=== PATIENT | male | born 1965 | race Caucasian/White ===

== ENCOUNTER → 2018-09-10 16:19 | Outpatient (CLI) | payer BC, SELFPAY ==
--- NOTE | 2018-09-10 | XR_ITS ---
XR chest 2V HISTORY: Exposure to secondhand smoke, although a pneumonia ITS.REASON: pre op ORDERING PHYSICIAN: Zoraida Murry DPM PATIENT AGE: 53 years COMPARISON: 03/27/2018 FINDINGS: Unremarkable cardiovascular structures. Chronic increased density is present in the right lung base sterilely consistent with an area of chronic infiltrate or atelectasis. Consider chest CT with contrast to exclude a postobstructive process as this did have a similar appearance on the previous exam. The remaining lungs are clear. There is a an old fracture of the distal left clavicle on the left with incomplete bony union and pseudoarthrosis. IMPRESSION: Chronic infiltrate/atelectatic change in the right lower lobe. Consider chest CT with contrast to exclude a postobstructive process
[2018-09-10 16:40] LABS: Basophils # 0.1 K/mm3 (0-0.2); Basophils % 1.4 % (0.1-2.0); Eosinophils # 0.1 K/mm3 (0.0-0.4); Eosinophils % 2.4 % (0.1-12.0); Hematocrit 45.4 % (42.0-52.0); Hemoglobin 15.5 g/dL (14.1-18.0); Lymphocytes % 19.9 % (10-50); Mean Corpuscular HGB Conc 34.1 g/dL (31.8-35.4); Mean Corpuscular Hemoglobin 30.8 pg (27.0-31.2); Mean Corpuscular Volume 90.2 fl (80-94); Mean Platelet Volume 7.6 fl (7.4-10.4); Monocytes # 0.3 K/mm3 (0.1-1.0); Monocytes % 5.8 % (1.7-9.3); Neutrophils # 3.7 K/mm3 (1.8-7.8); Neutrophils % 70.5 % (37.0-80.0); Platelet Count 258 K/mm3 (142-424); Red Blood Count 5.03 M/mm3 (4.60-6.20); Red Cell Distribution Width 12.8 % (11.5-17.5); White Blood Count 5.2 K/mm3 (4.8-10.8)
[2018-09-10 18:12] LABS: Alanine Aminotransferase 83 U/L (12-78); Albumin Level 4.1 gm/dL (3.4-5.0); Albumin/Globulin Ratio 1.2 (1.1-1.8); Alkaline Phosphatase 68 U/L (46-116); Anion Gap 15.6 mEq/L (5-15); Aspartate Amino Transferase 51 U/L (15-37); Bilirubin,Total 0.3 mg/dL (0.2-1.0); Blood Urea Nitrogen 18 mg/dL (7-18); Calcium 9.9 mg/dL (8.5-10.1); Carbon Dioxide 26 mmol/L (21.0-32.0); Chloride 104 mmol/L (98-107); Creatinine,Serum 1.11 mg/dL (0.70-1.30); Estimated Glomerular Filt Rate 69 ml/min (>60); GFR (African American) 84 ML/MIN (>60); Globulin 3.4 gm/dl (1.3-3.2); Glucose 103 mg/dL (74-106); Potassium 4.6 mmoL/L (3.5-5.1); Sodium 141 mmol/L (136-145); Total Protein,Serum 7.5 gm/dL (6.4-8.2)
== END ==
PROVIDERS: Visit Provider Podiatrist
DX: Z01.818 Encounter for other preprocedural examination (principal); M19.171 Post-traumatic osteoarthritis, right ankle and foot; Z96.9 Presence of functional implant, unspecified
CPT/HCPCS: 36415; 71046; 80053; 85025; 93005

== ENCOUNTER → 2018-10-10 16:47 | Outpatient (CLI) | payer BC, SELFPAY ==
--- NOTE | 2018-10-10 16:53 | XR_ITS ---
XR ankle wt bearing RT min 3V HISTORY: ITS.REASON: pain, postop ORDERING PHYSICIAN: Zoraida Murry DPM PATIENT AGE: 53 years Comparison: 09/14/2018 FINDINGS: There are postsurgical changes of the distal fibula with multiple lucencies from prior screw holes. There is good alignment. No acute fracture of the fibula. Posterior bone plate is present in the distal tibia unchanged. There is osteosclerosis of the distal tibia as before. A lucency is noted along the lateral aspect of the talar dome. This area measures approximately 7 mm suspicious for developing osteochondral defect. CT may confirm. There are osteoarthritic changes of the ankle joint as before. IMPRESSION: Postsurgical changes which are stable. Developing lucency of the lateral aspect of the talar dome which may be due to an osteochondral defect and may be confirmed with CT Osteoarthritis of the ankle
== END ==
PROVIDERS: PCP Family Medicine; Visit Provider Podiatrist
DX: G89.29 Other chronic pain (principal); M25.579 Pain in unspecified ankle and joints of unspecified foot
CPT/HCPCS: 73610

== ENCOUNTER → 2018-11-07 14:09 | Outpatient (CLI) | payer BC, SELFPAY ==
--- NOTE | 2018-11-07 14:16 | US_ITS ---
US Arterial Ankle Brachial Ind History: ITS.REASON: skin changes/cold extremities, surgical planning, previous smoker ORDERING PHYSICIAN: Zoraida Murry DPM PATIENT AGE: 53 years TECHNIQUE: Segmental pressures obtained of both right and left leg. These are compared to brachial blood pressure to yield index at each level sampled including summary FORD. The data sheets from the procedure are available in PACS FINDINGS Rest study only performed today No prior studies available for comparison. Blood pressures reported are in millimeters mercury. RIGHT LEG FORD = 1.0. RIGHT LEG TBI=1.0 Brachial BP: 115 Thigh BP: 126 Calf BP: 125 Ankle PT: 131 Ankle DP : 137 Digit =130 LEFT LEG FORD = 1.2 LEFT LEG TBI= 1.1 Brachial BPD: 126 Thigh BP: 112 Calf BP: 141 Ankle PT:148 Ankle DP: 142 Digit = 138 Pulses and waveforms: Normal IMPRESSION: The ABIs as reported above are within normal limits. Waveforms and pulses are also unremarkable.
== END ==
PROVIDERS: PCP Family Medicine; Visit Provider Podiatrist
DX: R68.89 Other general symptoms and signs (principal)
CPT/HCPCS: 93922

== ENCOUNTER → 2018-11-14 14:18 | Outpatient (CLI) | payer BC, SELFPAY ==
--- NOTE | 2018-11-14 14:20 | CT_ITS ---
CT ankle RT wo con INDICATION: Pain, prior ORIF of ITS.REASON: Surgical Planning ORDERING PHYSICIAN: Zoraida Murry DPM PATIENT AGE: 53 years COMPARISON: None TECHNIQUE: Axial images are obtained without contrast. Sagittal and coronal reformatted images are reviewed as well. All CT scans at the facility use one or more dose reduction, viz: automated exposure control, ma/kV adjustment per patient size (including targeted exams where dose is matched to indication, i.e. head), or iterative reconstruction technique. FINDINGS: There are mild osteoarthritic changes of the 3 compartments of the knee. A linear area of sclerosis is present involving the proximal tibia anteriorly and may be due to bone island. There are several lucencies of the tibia consistent with prior external fixator tracks. There is a posterior bone plate at the distal tibia with multiple screws with artifact from the screws. Multiple lucent defects are present in the distal fibula from prior external fixator. There is somewhat irregular subcortical lucency involving the lateral aspect of the talar down at 14 mm with an associated subcortical lucency of the lateral aspect of the distal tibia adjacent to the talar dome abnormality.. Osteoarthritic changes are present at the ankle joint with mild flattening of the talar dome. No bony destructive process evident that would indicate osteomyelitis. There is mild soft tissue swelling at the ankle joint.. No acute fracture. IMPRESSION: 1. Postsurgical changes of the distal tibia and fibula with multiple lucencies from prior external fixator. 2. Irregular subcortical lucency of the distal tibia laterally and the talar dome laterally. These defects are both sides of the joint. The differential diagnosis would include osteochondritis dissecans, infection, or disuse osteoporosis.
== END ==
PROVIDERS: PCP Family Medicine; Visit Provider Podiatrist
DX: M19.171 Post-traumatic osteoarthritis, right ankle and foot (principal); Z87.81 Personal history of (healed) traumatic fracture
CPT/HCPCS: 73700

== ENCOUNTER → 2018-11-30 08:59 | Outpatient (CLI) | payer BC, SELFPAY ==
--- NOTE | 2018-11-30 09:01 | XR_ITS ---
XR DEXA axial skeleton HISTORY: ITS.REASON: Evaluation ORDERING PHYSICIAN: Zoraida Murry DPM PATIENT AGE: 53 years COMPARISON: None FINDINGS: The BMD measured at the AP Spine L1-L4 femoral neck is 0.787 g/cm squared with a T score of -3.6. This is considered Osteoporotic according to the World Health Organization criteria. Fracture risk is High. Treatment is advised. IMPRESSION: Osteoporosis with high fracture risk. Treatment is advised. Suggest follow-up exam November 2019
== END ==
PROVIDERS: PCP Family Medicine; Visit Provider Podiatrist
DX: G89.29 Other chronic pain (principal); M19.171 Post-traumatic osteoarthritis, right ankle and foot; M25.371 Other instability, right ankle; M25.579 Pain in unspecified ankle and joints of unspecified foot; M65.9 Synovitis and tenosynovitis, unspecified; Z87.81 Personal history of (healed) traumatic fracture
CPT/HCPCS: 77080

== ENCOUNTER → 2018-12-10 12:23 | Outpatient (POV) | payer BC, SELFPAY | PROVIDERS: Visit Provider Specialist | DX: M79.604 Pain in right leg (principal); R20.2 Paresthesia of skin; R29.898 Other symptoms and signs involving the musculoskeletal system | CPT/HCPCS: 95886; 95908 ==

== ENCOUNTER → 2019-02-04 09:49 | Outpatient (CLI) | payer BC, SELFPAY ==
--- NOTE | 2019-02-04 10:00 | XR_ITS ---
PROCEDURE: XR CHEST 2V CLINICAL HISTORY: PRIOR TOBACCO USE Prior smoker COMPARISON: CXR CHEST(2 VIEWS-NOT PORTABLE) from 05/11/2016 CXR2V XR chest 2V from 03/27/2018 CXR2V XR chest 2V from 09/10/2018 FINDINGS: The cardiomediastinal silhouette and pulmonary vascularity are within normal limits.There are increased markings in the left lung base which may be due to an area of atelectasis. The remaining lungs are clear.No acute bony abnormalities. IMPRESSION: Left basilar atelectasis Dictated by: Jitendra Lockwood MD 02/04/2019 14:30 Signed by: <Electronically signed by Jitendra Lockwood MD in [place]> 02/04/2019 14:30
== END ==
PROVIDERS: PCP Family Medicine; Visit Provider Podiatrist
DX: Z01.818 Encounter for other preprocedural examination (principal); M19.171 Post-traumatic osteoarthritis, right ankle and foot; M25.871 Other specified joint disorders, right ankle and foot
CPT/HCPCS: 71046

== ENCOUNTER 2019-02-13 06:07 | Observation (INO) ==
--- NOTE | 2019-02-13 06:54 | Progress Note ---
[facility] Anesthesia Checklist - Structural Data Admitted From: Home Planned Operative Procedure/s: r total ankle Consent for Planned Operative Procedure(s) Verified: Yes - Additional verifications Anesthesia Reactions: No Hx Blood Transfusions: No Blood Transfusion Reaction: No - Airway Assessment C-Spine Mobility Assessed: Yes TMJ Mobility Assessed: Yes Dentition: Poor Dentition - Neurological Assessment Level of Consciousness: Awake, Alert, Appropriate - Anesthesia Plan Anesthesia Risk discussed: Yes Anesthesia Plan: Verified ASA Class: II Anesthesia Type: General Acuity:: asa2 [facility] History I have reviewed the patient's past medical history: Yes Medical History: Reports:: Osteoporosis Denies:: Cancer, Diabetes Mellitus Type 1, Diabetes Mellitus Type 2, Internal Pacemaker, MRSA, Seizures *Have you ever received a pneumonia vaccine?: No *Have you received a flu vaccine this season?: No Other Medical History: Reports: Osteoporosis, Other. Denies: Blood Transfusion Reaction Anesthesia experience/problems:: none Laterality Cases: Right: Other Other Surgeries: Yes: No Previous Surgery. No: Pacemaker Amputation: No Fractures: Yes - *Social History Educational Level: Completed High School Smoking Status: Never smoker Alcohol Intake: never Alcohol Intake Frequency:: other Substance Use Type: denies use *Occupational Status:: employed Housing: house Household Members: spouse *Travel in the last 8 weeks: None Family Hx:: Diabetes, Stroke, Heart Attack, Hyperlipidemia, Hypertension
--- NOTE | 2019-02-13 07:18 | Operative Note ---
Date of procedure: 02/13/19 Pre-op Diagnosis:: 1. Post-traumatic osteoarthritis of right ankle 2. Retained orthopedic hardware 3. Synovitis of right ankle 4. Impingement of right ankle joint 5. Ankle pain, chronic 6. Gastrocnemius soleus equinus of right lower extremity 7. Paresthesia and pain of right extremity 8. Edema of right lower extremity 9. History of fracture of right ankle 10. Right ankle instability Status post foot surgery: 09/14/18: s/p right ankle HWR, arthroscopy, synovectomy (peroneal tendon synovectomy), exostectomy, bone biospy, medial arthrotomy, application of amniotic graft Post-op Diagnosis:: Same Procedure performed:: 1. Right total ankle replacement 2. Right ankle hardware removal 3. Right ankle synovectomy 4. Right tendo Achilles lengthening 5. Right application of amniotic graft Surgeon:: Zoraida Murry DPM Photographer Model(s):: Alida Esquivel LIST OF FIRST JOB IDEAS:: Rob Walker Anesthesia: GETA, regional (R popliteal block) Estimated blood loss (mL): 40 Clinical Note:: Right ankle post traumatic osteoarthritis pre-op: Underwent surgery on 09/14/18: s/p right ankle HWR, arthroscopy, synovectomy (peroneal tendon synovectomy), exostectomy, bone biospy, medial arthrotomy, application of amniotic graft. At that time the ankle joint looked poor with cartilage damage and severe erosive changes. X-rays and CT scans were obtained. They were reviewed and discussed with the patient. Concerned over the poor bone quality. DEXA scan done 11/30/2018, Osteoporosis with high fracture risk. Treatment is advised. Suggest follow-up exam November 2019. Patient also had an EMG/nerve conduction study 12/10/2018 which was negative for underlying neuropathy. Vascular studies done 11/07/2018: Pulses and waveforms within normal limits. FORD and TBI on the right 1.0, left FORD 1.2, TBI 1.1. Patient saw Dr. Lucero 01/30/2019 had labs and an EKG. Surgical clearance granted. Conservative treatment discussed but not recommended as he has failed bracing, strapping, immobilization, modification of shoe gear, icing, NSAIDs, home stretching, physical therapy and previous surgery x2. We discussed surgery. All risks and benefits were discussed including but not limited to: damage to blood vessels and nerves, bleeding, infection, wound complications, delayed, mal or non-union of bone, post-traumatic arthritis, need for further surgery, need for removal of implant, subsidence of the implant, implant infection, wearing down of the poly- /implant, prolonged swelling of the extremity, prolonged pain, CRPS/RSD, DVT/PE, below-knee amputation and anesthetic complications. No guarantees were given. All questions fully answered. The patient verbalized understanding and agreed to proceed with surgery. Consent was obtained. Necessary labs and pre-op testing ordered: vit D and CXR. Pt was given a Rx for Zofran, Motrin, Ibuprofen. Patient father has a history of DVT. We discussed DVT prophylaxis with Lovenox x6 weeks until he starts physical therapy. Risks and benefits were reviewed. Patient is agreed with DVT prophylaxis. He has crutches at home. I recommended a rolling knee scooter as well. Operative findings:: Hardware removed without complication. No signs of infection. Synovitis and scar tissue noted to the ankle gutter. There was hypertrophic bone formation within the ankle gutters. Bone was soft consistent with osteoporosis. Operative note:: On this date and time patient was deemed an appropriate surgical candidate. With informed consent signed, the patient was taken to the operating theater after preop regional right popliteal nerve block. The patient was positioned supine. General anesthesia was induced. Tourniquet was applied to the right thigh @250mmHg. Patient was positioned prone and the right lower extremity was prepped and draped in normal sterile fashion. Right Ankle Hardware Removal: The tourniquet was inflated. Attention was directed to the right posterior leg, where a dorsal linear incision was mapped out next to the previous incision site, just lateral to the Achilles tendon. Dissection was carried thru skin and sub q tissue, with care to maintain surgical hemostasis. Scar tissue noted. The hardware was visualized. The screws x 5 and locking plate x 1 were removed. Right Tendo Achilles Lengthening: At this point attention was directed to the Achilles tendon. Utilizing a 15 blade the Achilles was transected in a mayra-fashion with the foot dorsiflexed. Achilles contracture released and range of motion to the ankle was greatly improved. The wound was flushed with bacitracin irrigation. 3-0 Vicryl was used to reapproximate deep tissue in a running fashion. 3-0 Vicryl was used to reapproximate subcutaneous tissue and a running fashion. 3-0 nylon was used to reapproximate the skin in interrupted mattress fashion. Dressing was applied to the area. Tourniquet was deflated and immediate hyperemic response was noted to the digits. The patient was then positioned supine and case proceeded as below. Right Ankle Synovectomy: Attention was directed to the anterior ankle where an incision was mapped out medial to the tibialis anterior tendon. Tourniquet was reinflated. Dissection carried out in a layered fashion with care to maintain hemostasis. Deep fascia and capsule transected, bone visualized. The bone was soft with cystic pockets noted through the tibial plafond and dome of the talus. The soft tissue appeared mostly healthy with no mullen and no necrotic tissue noted. The fibrotic scar and the synovitic tissue was sharply debrided. The ankle joint was visualized and synovitic fluid was removed. The wound was flushed with copious amounts of bacitracin in saline. Right Total Ankle Replacement: In accordance with pricing manager guidelines and standard technique, Prophecy guided technique was utilized. The bone cutting templates were inserted and the tibia and talar cuts were coupled. Bone was removed without complication. There was hypertrophic bone noted to the gutters which was debrided with a rongur and reciprocating rasp. Overall bone quality was noted to be soft but the implant trials and actual implant did fit well with no concern of fracturing of the bone. Intraoperative fluoroscopy was utilized to check position of trials throughout the case including AP MO and lateral. A liter of saline with bacitracin irrigation was used and pulse lavage to flush out the ankle. Size 3 long Inbone tibial implant inserted. At size 3 talus implant was inserted. Intraoperative fluoroscopy utilized to check position of the implant. An 8 mm poly-was then trialed and inserted. Good smooth range of motion was noted. Final gutter debridement performed to remove soft tissue. No impingement was noted. Final radiographic views were obtained and the implant was noted to be seated. Right Application of Amniotic Graft: At this point the wound was re-flushed with bacitracin irrigation. A piece of Actishield tissue graft was transected on the back table. It was then further cut in half and a piece was inserted into the each ankle gutter to prevent gutter impingement. The deep tissue layer was repaired with 2-0 Vicryl. Part of the tibialis anterior tendon was exposed so a piece of the graft was laid over the TA tendon and 2-0 Vicryl was used to reapproximate the sheath. The subcutaneous tissue layer was repair with 3-0 Vicryl in a running fashion. Remaining graft inserted prior to skin closure. The skin was closed in a Donotia Allgower suture fashion with 3-0 nylon. Skin was cleansed. Tourniquet deflated and immediate hyperemic response was noted to the digits. Xeroform and a dry sterile dressing was then applied to the left foot, followed by a posterior splint. The patient was awoken from anesthesia and transferred to recovery with vital signs stable and neurovascular status intact. Materials: Revenew InBone Ankle Implant (3L tibia, 3 talus, 8mm poly) Actishield graft Discharge/Plan: Admit for 23 hour observation for post op pain mgmt and PT evaluation. Patient is to maintain dressing clean dry and intact. Ice to the top of the ankle and elevate on two pillows. Non weight bearing to the right lower extremity with DME assistance. Patient has crutches. Rx for Percocet, Motrin, Zofran, Lovenox, Keflex. Obtain post op films, right ankle, 3 views. Follow up in one week Tourniquet time (min): 175 Condition: stable Disposition: observation Specimens:: None Complications:: During the case, there was a fly noted in the room. The prone procedure was completed. Bacitracin irrigation was added to the irrigation of the wound flush prior to closure. I went to talk to the patient's Chemo as well as his mother. I explained in detail that I could not guarantee that the back table was not contaminated. The entire back table was broken down and instruments completely resterilized. The implants themselves had not been opened yet were still sterile. and mother are aware of the increased risk for infection. They were both adamant the patient would want to proceed. They have both agreed to sign the consent acknowledging that I talked to them and there was increased infection risk. Situation discussed with convention services director Ariane Springer, as well as a nurse dba manager Angelica Nelson and Renetta with infection control. Plan to keep the patient overnight with every 8 antibiotics. We will also plan for oral antibiotics at the time of discharge.
--- NOTE | 2019-02-13 09:43 | History & Physical Report ---
*Admission Date: 02/13/19 *Reason for consult:: Post Op Total Ankle Replacement *History of present illness: Mr. Rinaldi is a 53M who was admitted today for post op pain control and physical therapy evaluation, after right hardware removal, tendo Achilles lengthening and total ankle replacement. Patient has no pertinent medical history and is taking vitamin D for osteoporosis. In the past the patient underwent surgery on 09/14/18: s/p right ankle HWR, arthroscopy, synovectomy (peroneal tendon synovectomy), exostectomy, bone biospy, medial arthrotomy, application of amniotic graft. At that time the ankle joint looked poor with cartilage damage and severe erosive changes. X- rays and CT scans were obtained. They were reviewed and discussed with the patient. Concerned over the poor bone quality. DEXA scan done 11/30/2018, Osteoporosis with high fracture risk. Treatment is advised. Suggest follow-up exam November 2019. Patient also had an EMG/nerve conduction study 12/10/2018 which was negative for underlying neuropathy. Vascular studies done 11/07/2018: Pulses and waveforms within normal limits. FORD and TBI on the right 1.0, left FORD 1.2, TBI 1.1. Patient saw Dr. Lucero 01/30/2019 had labs and an EKG with surgical clearance granted. [facility] History I have reviewed the patient's past medical history: Yes Medical History: Reports:: Osteoporosis Denies:: Cancer, Diabetes Mellitus Type 1, Diabetes Mellitus Type 2, Internal Pacemaker, MRSA, Seizures *Have you ever received a pneumonia vaccine?: No *Have you received a flu vaccine this season?: No Other Medical History: Reports: Osteoporosis, Other. Denies: Blood Transfusion Reaction Anesthesia experience/problems:: none Laterality Cases: Right: Other Other Surgeries: Yes: No Previous Surgery. No: Pacemaker Amputation: No Fractures: Yes - *Social History Educational Level: Completed High School Smoking Status: Never smoker Alcohol Intake: never Alcohol Intake Frequency:: other Substance Use Type: denies use *Occupational Status:: employed Housing: house Household Members: spouse *Travel in the last 8 weeks: None Family Hx:: Diabetes, Stroke, Heart Attack, Hyperlipidemia, Hypertension Review of Systems - Review of Systems Review of systems:: pertinent systems reviewed and negative unless documented below - Constitutional Denies chills, Denies weakness - Eyes Denies blind spots, Denies blurry vision - ENT Denies abnormal hearing - *Cardiovascular Denies chest pain - *Respiratory Denies chest congestion, Denies shortness of breath - *Gastrointestinal Denies abdominal pain, Denies vomiting - *Genitourinary Denies difficulty urinating - *Musculoskeletal Reports joint pain, Reports joint swelling, Denies abnormal walking - Integumentary/Breasts Reports hair loss - *Neurologic Denies abnormal walking, Denies tingling/numbness/burning sensations - Psychiatric Denies abnormal sleep pattern - Endocrine Denies cold intolerance - Hematologic/Lymphatic Reports easy bruising - Allergic/Immunologic Denies itchy eyes, Denies lip swelling Meds Home Medications Medication Instructions Recorded Confirmed Type enoxaparin 40 mg/0.4 mL 40 mg SQ QDAY 42 Days #16.8 ml 02/04/19 02/13/19 Rx subcutaneous syringe ibuprofen 800 mg tablet 800 mg PO BID #60 tab 02/04/19 02/13/19 Rx ondansetron 4 mg disintegrating 4 mg PO Q6H #30 tab 02/04/19 02/13/19 Rx tablet Ergocalciferol (Vitamin D2) 100,000 unit PO WEEKLY 02/12/19 02/13/19 History [Drisdol] Allergies Allergy/AdvReac Type Severity Reaction Status Date / Time No Known Allergies Allergy Verified 02/13/19 06:21 Exam Vital signs and Labs for Last 24 Hours: Temp Pulse Resp BP Pulse Ox 98.6 F 55 L 18 106/78 L 96 02/13/19 06:24 02/13/19 06:24 02/13/19 06:24 02/13/19 06:24 02/13/19 06:24 I & O for Last 24 hours: Intake & Output 02/10/19 02/11/19 02/12/19 02/13/19 11:59 11:59 11:59 11:59 Weight 146 lb - Constitutional no acute distress - *Routine HEENT Exam Head: Present: normocephalic Eye: Present: PERRL ENT: Present: mucous membranes moist - *Routine Neck Exam Present: supple - *Routine Respiratory Exam Present: accessory muscle use, CTA bilaterally - *Routine Cardiovascular Exam Present: RRR - *Routine Abdominal Exam Present: soft. Absent: tenderness - *Routine Rectal Exam Patient deferred: visual exam - *Routine Exam Patient deferred: penile exam - *Routine Extremities Exam Present: pulses intact, normal capillary refill. Absent: calf tenderness - *Routine Skin Exam Present: intact, warm - *Routine Neurological Exam Present: alert, moving all extremities - Routine Psychiatric Exam Present: normal affect - Detailed Lower Extremity Exam Comments: Right posterior splint clean dry and intact. Cap fill time within normal limits. Motor function intact to all extremities. No calf or thigh pain noted bilaterally. Light touch sensation decreased secondary to regional nerve block. Results - Labs Labs: All other labs normal. - Diagnostic results Ankle/Foot x-ray: pending, image reviewed Assessment and Plan (1) Post-traumatic osteoarthritis of right ankle Start date: 02/13/19 Current visit: Yes Status: Acute Category: Medical Code(s): M19.171 - Post-traumatic osteoarthritis, right ankle and foot (2) Synovitis of right ankle Current visit: Yes Status: Acute Category: Medical Code(s): M65.9 - Synovitis and tenosynovitis, unspecified (3) Retained orthopedic hardware Current visit: Yes Status: Acute Category: Medical Code(s): Z96.9 - Presence of functional implant, unspecified (4) Gastrocnemius equinus of right lower extremity Current visit: Yes Status: Acute Category: Medical Code(s): M21.6X1 - Other acquired deformities of right foot (5) Equinus contracture of right ankle Current visit: Yes Status: Acute Category: Medical Code(s): M24.571 - Contracture, right ankle (6) Impingement of right ankle joint Current visit: Yes Status: Acute Category: Medical Code(s): M25.871 - Other specified joint disorders, right ankle and foot (7) Osteoporosis Current visit: Yes Status: Acute Category: Medical Code(s): M81.0 - Age- related osteoporosis without current pathological fracture - Assessment and plan all Dx Assessment and Plan for all problems:: DOS: 02/13/19 S/P: Right total ankle replacement, ankle hardware removal, synovectomy, tendo Achilles lengthening, application of amniotic graft Plan: Admit for 23 hour observation for pain control and PT evaluation Consult PCP-Dr. Lucero as needed PT in am for transitions and gait training, NWB Maintain dressing clean dry and intact to the right lower extremity Nonweightbearing to RLE Cryo/Cuff behind the knee Elevate on 2 pillows or foam ramp SCD and DVT prophylaxis-Lovenox Patient has crutches Patient will need medication: Percocet, Keflex e-Rx Lovenox, Zofran, Motrin Likely discharge home tomorrow
--- NOTE | 2019-02-13 14:11 | Progress Note ---
[facility] Anesthesia Record Part I Intake, IV Amount: 1,900 Estimated blood loss (mL): 50 Urine output (mL): 1,200 Blood Products used (#): none Blood Pressure: 118/77 SaO2: 97 Pulse Rate: 92 Respiratory Rate: 12 Temperature: 97.0 F Patient is:: Drowsy, Stable Stable to PACU at:: 14:05
--- NOTE | 2019-02-13 14:12 | Progress Note ---
[facility] Anesthesia Record Part II Discharge Time: 14:35 Destination: Medical Surgical Department PACU nurse assessment reviewed?: Yes Patient Condition:: Good Anesthesia Complications:: None Swallowing reflex intact?: Yes Cyanosis?: No
--- NOTE | 2019-02-13 14:21 | Pharmacy Consult Notes ---
[facility] Pharmacy VTE Monitoring - Patient Demographics Admission date: 02/13/19 Report Date: 02/13/19 Time: 14:21 Allergies/Adverse Reactions: Patient Allergies No Known Allergies Allergy (Verified 02/13/19 06:21) Height: 1.63 m Weight: 66.224 kg - VTE Risk Clinical Trial Participant: No - Prophylaxis VTE Prophylaxis Ordered?: Yes Types of VTE Prophylaxis: IPCS Knee High (POST OP), Pharmacological Pharmacologic Type: Enoxaparin
--- NOTE | 2019-02-14 07:41 | Progress Note ---
Internal Medicine - PN: Subj *Date: 02/14/19 *Time: 07:40 Interval history: Patient has no complaints this morning. The right leg remains numb from his nerve block. Exam Vital signs and Labs for Last 24 Hours: Temp Pulse Resp BP Pulse Ox 98.4 F 65 18 100/60 L 94 L 02/14/19 04:00 02/14/19 04:00 02/14/19 04:00 02/14/19 04:00 02/14/19 04:00 Laboratory Results - last 24 hr 02/13/19 07:40: Urine Color Yellow, Urine Appearance Clear, Urine pH 6.0, Ur Specific [place] 1.020, Urine Protein Negative, Urine Glucose (UA) Negative, Urine Ketones Negative, Urine Blood Negative, Urine Nitrate Negative, Urine Bilirubin Negative, Urine Urobilinogen 0.2, Ur Leukocyte Esterase Negative, Urine RBC None, Urine WBC Occasional, Ur Squamous Epith Cells None, Urine Bacteria 1+ I & O for Last 24 hours: Intake & Output 02/11/19 02/12/19 02/13/19 02/14/19 11:59 11:59 11:59 11:59 Intake Total 2190 / 2190 Output Total 1750 / 1750 Balance 440 / 440 Weight 146 lb 145 lb Narrative: Patient looks comfortable. Lungs remain clear. Heart has a regular rate and rhythm. Abdomen is soft. Right ankle is bandaged Assessment and Plan (1) Post-traumatic osteoarthritis of right ankle Start date: 02/13/19 Current visit: Yes Status: Acute Category: Medical Code(s): M19.171 - Post-traumatic osteoarthritis, right ankle and foot (2) Synovitis of right ankle Current visit: Yes Status: Acute Category: Medical Code(s): M65.9 - S ynovitis and tenosynovitis, unspecified (3) Retained orthopedic hardware Current visit: Yes Status: Acute Category: Medical Code(s): Z96.9 - Presence of functional implant, unspecified (4) Gastrocnemius equinus of right lower extremity Current visit: Yes Status: Acute Category: Medical Code(s): M21.6X1 - Other acquired deformities of right foot (5) Equinus contracture of right ankle Current visit: Yes Status: Acute Category: Medical Code(s): M24.571 - Contracture, right ankle (6) Impingement of right ankle joint Current visit: Yes Status: Acute Category: Medical Code(s): M25.871 - Other specified joint disorders, right ankle and foot (7) Osteoporosis Current visit: Yes Status: Acute Category: Medical Code(s): M81.0 - Age- related osteoporosis without current pathological fracture - Assessment and plan all Dx Assessment and Plan for all problems:: 1. No active medical issues at this time.
[2019-02-14 08:11] LABS: Basophils % 0.1 % (0.1-2.0); Hematocrit 39.8 % (42.0-52.0); Hemoglobin 13.3 g/dL (14.1-18.0); Lymphocytes # 1.2 K/mm3 (0.7-4.5); Lymphocytes % 9.6 % (10-50); Mean Corpuscular HGB Conc 33.3 g/dL (31.8-35.4); Mean Corpuscular Volume 91.9 fl (80-94); Mean Platelet Volume 7.6 fl (7.4-10.4); Monocytes # 1.2 K/mm3 (0.1-1.0); Neutrophils # 10.5 K/mm3 (1.8-7.8); Neutrophils % 81.4 % (37.0-80.0); Platelet Count 287 K/mm3 (142-424); Red Blood Count 4.34 M/mm3 (4.60-6.20); Red Cell Distribution Width 12.9 % (11.5-17.5); White Blood Count 12.8 K/mm3 (4.8-10.8)
[2019-02-14 08:15] LABS: Albumin Level 3.5 gm/dL (3.4-5.0); Albumin/Globulin Ratio 1.1 (1.1-1.8); Anion Gap 11.9 mEq/L (5-15); Bilirubin,Total 0.5 mg/dL (0.2-1.0); Globulin 3.2 gm/dl (1.3-3.2); Total Protein,Serum 6.7 gm/dL (6.4-8.2)
--- NOTE | 2019-02-14 09:16 | Discharge Summary ---
General - General Admission date:: 02/13/19 Discharge date: 02/14/19 HPI HPI: Mr. Rinaldi was admitted 02/13/2019 following a right total ankle replacement. Relatively uneventful postop course. Patient resting comfortably in bed today with no complaints of pain or medical issues. Hospital Course Hospital Course: Uneventful post op course. 02/13/19 S/P: Right total ankle replacement, ankle hardware removal, synovectomy, tendo Achilles lengthening, application of amniotic graft POD #1: Plan: Admit for 23 hour observation for pain control and PT evaluation Consult PCP-Dr. Lucero/Brennan as needed PT in am for transitions and gait training, NWB Maintain dressing clean dry and intact to the right lower extremity Nonweightbearing to RLE Cryo/Cuff behind the knee Elevate on 2 pillows or foam ramp SCD and DVT prophylaxis-Lovenox Patient has crutches Patient given new Rx Percocet, Keflex e-Rx Lovenox, Zofran, Motrin Discharge home today Objective Vital signs: Temp Pulse Resp BP Pulse Ox 98.4 F 65 18 100/60 L 94 L 02/14/19 04:00 02/14/19 04:00 02/14/19 04:00 02/14/19 04:00 02/14/19 04:00 - *Routine HEENT Exam Head: Present: normocephalic Eye: Present: EOMI - *Routine Neck Exam Present: supple - *Routine Respiratory Exam Present: accessory muscle use, CTA bilaterally - *Routine Cardiovascular Exam Present: RRR - *Routine Abdominal Exam Present: soft. Absent: guarding - *Routine Rectal Exam Patient deferred: visual exam - *Routine Exam Patient deferred: penile exam - *Routine Extremities Exam Present: edema, pulses intact, normal capillary refill - Routine Back/Spine/Pelvis Exam Back/Spine: Present: full ROM - *Routine Skin Exam Present: intact - *Routine Neurological Exam Present: alert - Routine Psychiatric Exam Present: normal affect - Detailed Lower Extremity Exam Comments: The dressing to the right foot had been previously removed secondary to strikethrough. Dressing is now clean dry and intact. Motor function and light touch sensation decreased secondary to nerve block. No calf or thigh pain noted bilaterally. Results Labs on day of discharge: Labs from last 24 hours 02/14/19 02/14/19 02/13/19 07:45 07:45 07:40 WBC 12.8 H RBC 4.34 L Hgb 13.3 L Hct 39.8 L MCV 91.9 MCH 30.6 MCHC 33.3 RDW 12.9 Plt Count 287 MPV 7.6 Neut % (Auto) 81.4 H Lymph % (Auto) 9.6 L [place] % (Auto) 9.0 Eos % (Auto) 0.0 L Baso % (Auto) 0.1 Neut # (Auto) 10.5 H Lymph # (Auto) 1.2 [place] # (Auto) 1.2 H Eos # (Auto) 0.0 Baso # (Auto) 0.0 Sodium 138 Potassium 3.9 Chloride 104 Carbon Dioxide 26 Anion Gap 11.9 BUN 12 Creatinine 1.17 Estimated Creat Clear 68 Estimated GFR 65 Est GFR ( Amer) 79 Glucose 120 H Calcium 9.0 Total Bilirubin 0.5 AST 25 ALT 42 Alkaline Phosphatase 60 Total Protein 6.7 Albumin 3.5 Globulin 3.2 Albumin/Globulin Ratio 1.1 Urine Color Yellow Urine Appearance Clear Urine pH 6.0 Ur Specific [place] 1.020 Urine Protein Negative Urine Glucose (UA) Negative Urine Ketones Negative Urine Blood Negative Urine Nitrate Negative Urine Bilirubin Negative Urine Urobilinogen 0.2 Ur Leukocyte Esterase Negative Urine RBC None Urine WBC Occasional Ur Squamous Epith Cells None Urine Bacteria 1+ DS: Diagnosis - Discharge Diagnosis (1) Post-traumatic osteoarthritis of right ankle Status: Acute (2) Synovitis of right ankle Status: Acute (3) Retained orthopedic hardware Status: Acute (4) Gastrocnemius equinus of right lower extremity Status: Acute (5) Equinus contracture of right ankle Status: Acute (6) Impingement of right ankle joint Status: Acute (7) Osteoporosis Status: Acute Discharge Plan - Patient Discharge Instructions ACTIVITY: Limited activity DIET: continue same diet Additional Instructions: Patient is to maintain dressing clean dry and intact. Ice (polar pack) behind the right knee and elevate on two pillows. Non weight bearing to the right lower extremity with DME assistance (crutches, rolling knee scooter). Continue incentive spirometer q1h. Rx for Percocet 7.5/325 and Keflex given. e-Rx given for Lovenox, Zofran and Motrin 800mg. Follow up in one week as scheduled Patient Instructions: DI for Surgical Site Infection, Surgical Site Infection, DI for Ankle Replacement, Ankle Replacement - Follow up Plan Follow up with: Zoraida Murry DPM [Staff Physician] - Disposition: Home, Self-Residential Medications: Home Medications Medication Instructions Recorded Confirmed Type enoxaparin 40 mg/0.4 mL 40 mg SQ QDAY 42 Days #16.8 ml 02/04/19 02/13/19 Rx subcutaneous syringe ibuprofen 800 mg tablet 800 mg PO BID #60 tab 02/04/19 02/13/19 Rx Ergocalciferol (Vitamin D2) 100,000 unit PO WEEKLY 02/12/19 02/13/19 History [Drisdol] Ondansetron [Zofran 4mg ODT] 4 mg PO Q6H PRN 02/13/19 02/13/19 History Prescriptions/Medication Reconciliation: Continued ibuprofen 800 mg tablet 800 mg PO BID #60 tab enoxaparin 40 mg/0.4 mL subcutaneous syringe 40 mg SQ QDAY 42 Days #16.8 ml Ergocalciferol (Vitamin D2) [Drisdol] 100,000 unit PO WEEKLY Ondansetron [Zofran 4mg ODT] 4 mg PO Q6H PRN PRN Reason: Nausea - Problem Reconciliation Problems Reviewed?: Yes
[2019-02-22 11:40] LABS: 1,25 Dihydroxy Vitamin D 50 pg/mL (.)
== END 2019-02-14 11:55 | disposition home or self-care (01) ==
LOC: 2ND 06:07 → OR 06:07 → OBSVTOIN 06:12 → INTOOBSV 06:12 → 2ND 14:49
PROVIDERS: ADMIT Podiatrist; ATTEND Podiatrist
CPT/HCPCS: 36415; 73600; 73610; 76000; 80053; 81001; 82652; 85025; 96374; 97161; C1776; C9399; G0378; J2405

== ENCOUNTER 2019-02-17 15:27 | Inpatient (IN) ==
[2019-02-17 16:22] LABS: Albumin Level 3.3 gm/dL (3.4-5.0); Albumin/Globulin Ratio 0.8 (1.1-1.8); Anion Gap 15.7 mEq/L (5-15); Bilirubin,Total 1.3 mg/dL (0.2-1.0); Calcium 9.4 mg/dL (8.5-10.1); Globulin 4.3 gm/dl (1.3-3.2); Total Protein,Serum 7.6 gm/dL (6.4-8.2)
[2019-02-17 16:30] LABS: Basophils % 0.2 % (0.1-2.0); Eosinophils % 0.1 % (0.1-12.0); Hemoglobin 13.7 g/dL (14.1-18.0); Lymphocytes # 0.8 K/mm3 (0.7-4.5); Lymphocytes % 5.2 % (10-50); Mean Corpuscular HGB Conc 34.4 g/dL (31.8-35.4); Mean Corpuscular Volume 89.6 fl (80-94); Mean Platelet Volume 8.3 fl (7.4-10.4); Monocytes # 0.9 K/mm3 (0.1-1.0); Neutrophils # 12.9 K/mm3 (1.8-7.8); Neutrophils % 88.5 % (37.0-80.0); Platelet Count 312 K/mm3 (142-424); Red Blood Count 4.46 M/mm3 (4.60-6.20); Red Cell Distribution Width 12.6 % (11.5-17.5); White Blood Count 14.6 K/mm3 (4.8-10.8)
--- NOTE | 2019-02-17 16:36 | Emergency Department Note ---
ED Disposition Clinical Impression: Postoperative fever, Elevated liver enzymes Vomiting Qualifiers: Vomiting type: unspecified Vomiting Intractability: intractable Nausea presence: with nausea Qualified Code(s): R11.2 - Nausea with vomiting, unspecified Disposition: Admitted as Observation Condition on Discharge: Fair - Critical Care Critical Care Time: No Attestation: On 02/17/19, the high probability of a clinically significant, sudden or life threatening deterioration of the following system(s) required my full and direct attention, intervention and personal management. The time I documented below is in addition to time spent performing reported procedures but includes the following listed in this critical care notation. Medical Decision Making - Jose Inquiry Pt receiving controlled substance: Yes Jose was queried for this patient: No Reason not queried -: Emergent pt cond-no time Risks and benefits of using a controlled substance: were not discussed with pt by me Vital Signs: 02/17/19 15:27 02/17/19 16:12 02/17/19 16:56 Temperature 99.1 F 101.3 F H Temperature Source Oral Oral Pulse Rate [Left Radial] 122 H 82 Respiratory Rate 20 Blood Pressure [Right Arm] 110/78 143/86 H Blood Pressure Mean [Right Arm] 88 105 Blood Pressure Source [Right Arm] Automatic Cuff Automatic Cuff Blood Pressure Position [Right Arm] Sitting Sitting 02 Sat by Pulse Oximetry 93 L 99 Oxygen Delivery Method Room Air 02/17/19 17:24 02/17/19 17:35 02/17/19 18:00 Temperature 99 F Temperature Source Oral Pulse Rate [Left Radial] 94 H 81 Respiratory Rate Blood Pressure [Right Arm] 104/68 L 107/75 L Blood Pressure Mean [Right Arm] 80 85 Blood Pressure Source [Right Arm] Automatic Cuff Blood Pressure Position [Right Arm] Sitting 02 Sat by Pulse Oximetry 98 95 Oxygen Delivery Method - Lab Data Lab Results 02/17/19 15:48: Urine Color Dk yellow, Urine Appearance Sl cloudy, Urine pH 6.0, Ur Specific [place] 1.020, Urine Protein Trace, Urine Glucose (UA) Negative, Urine Ketones Trace, Urine Blood Trace-i, Urine Nitrate Negative, Urine Bilirubin Negative, Urine Urobilinogen 1.0, Ur Leukocyte Esterase Negative, Urine RBC Occasional, Urine WBC Occasional, Ur Squamous Epith Cells Occasional, Urine Bacteria Trace, Urine Mucus 3+ 02/17/19 15:52: WBC 14.6 H, RBC 4.46 L, Hgb 13.7 L, Hct 40.0 L, MCV 89.6, MCH 30.8, MCHC 34.4, RDW 12.6, Plt Count 312, MPV 8.3, Neut % (Auto) 88.5 H, Lymph % (Auto) 5.2 L, [place] % (Auto) 6.0, Eos % (Auto) 0.1, Baso % (Auto) 0.2, Neut # (Auto) 12.9 H, Lymph # (Auto) 0.8, [place] # (Auto) 0.9, Eos # (Auto) 0.0, Baso # (Auto) 0.0, Total Counted 100, Neutrophils % (Manual) 90 H, Band Neutrophils % 3.0, Lymphocytes % (Manual) 4 L, Monocytes % (Manual) 3, Platelet Estimate Normal 02/17/19 15:52: Sodium 134 L, Potassium 3.7, Chloride 98, Carbon Dioxide 24, Anion Gap 15.7 H, BUN 14, Creatinine 1.23, Estimated Creat Clear 67, Estimated GFR 62, Est GFR ( Amer) 74, Glucose 121 H, Calcium 9.4, Total Bilirubin 1.3 H, AST 81 H, ALT 170 H, Alkaline Phosphatase 150 H, Total Protein 7.6, Albumin 3.3 L, Globulin 4.3 H, Albumin/Globulin Ratio 0.8 L 02/17/19 15:52: ESR 76 H 02/17/19 15:52: C-Reactive Protein 11.5 H 02/17/19 16:32: Influenza Type A Ag Negative, Influenza Type B Ag Negative 02/17/19 17:13: Lactate 0.8 Result diagrams: 02/17/19 15:52 02/17/19 15:52 Orders (Tests/Meds): ED MEDICATIONS Generic Name Dose Route Start Last Admin Trade Name Freq PRN Reason Stop Dose Admin Acetaminophen 650 mg 02/17/19 18:05 Acetaminophen 325mg Tab PO 03/19/19 18:04 Q4HP PRN As Needed for Fever or Pain Enoxaparin Sodium 40 mg 02/18/19 09:00 Lovenox 40mg/0.4ml Syringe SQ 03/20/19 08:59 DAILY DOMINICK Sodium Chloride 1,000 mls @ 100 mls/hr 02/17/19 18:05 02/17/19 18:33 Sod Chlor 0.9% 1000ml Bag IV 03/19/19 18:04 100 mls/hr .Q10H DOMINICK Administration Piperacillin Sod/Tazobactam 100 mls @ 200 mls/hr 02/17/19 23:30 Sod 4.5 gm/ Sodium Chloride IV 03/03/19 17:29 Q6H DOMINICK Protocol Miscellaneous 1 each 02/17/19 18:05 Vancomycin Consult Request NOTAPPLIC 02/18/19 05:19 CONSULT PHARMACY DOMINICK Morphine Sulfate 4 mg 02/17/19 18:05 Morphine 2mg/Ml Syringe IV 03/19/19 18:04 Q4HP PRN Severe Pain Non-Formulary Medication 800 mg 02/17/19 21:00 Ibuprofen [Ibuprofen 800mg Tablet] PO 03/19/19 20:59 BID DOMINICK Ondansetron HCl 4 mg 02/17/19 18:05 Zofran 4mg/2ml Vial IV 03/19/19 18:04 Q8HP PRN Nausea Sodium Chloride 10 ml 02/17/19 18:05 Saline Flush 10ml Syringe IV 03/19/19 18:04 NEEDED PRN Maintain IV Site Vancomycin HCl 1,250 mg 02/17/19 18:05 Vancomycin 1000mg Vial IV 02/17/19 18:06 ONCE ONE Protocol Discontinued Medications Generic Name Dose Route Start Last Admin Trade Name Freq PRN Reason Stop Dose Admin Acetaminophen 650 mg 02/17/19 16:33 02/17/19 16:38 Acetaminophen 325mg Tab PO 02/17/19 16:34 650 mg ONCE ONE Administration Sodium Chloride 1,000 mls @ 999 mls/hr 02/17/19 15:45 02/17/19 16:38 Sod Chlor 0.9% 1000ml Bag IV 02/17/19 16:45 999 mls/hr .Q1H1M DOMINICK Administration Piperacillin Sod/Tazobactam 100 mls @ 200 mls/hr 02/17/19 17:30 02/17/19 17:49 Sod 4.5 gm/ Sodium Chloride IV 03/03/19 17:29 200 mls/hr Q6H DOMINICK Administration Protocol Miscellaneous 1 each 02/17/19 17:30 02/17/19 17:38 Vancomycin Consult Request NOTAPPLIC 02/18/19 05:19 1 each CONSULT PHARMACY DOMINICK Administration Ondansetron HCl 4 mg 02/17/19 16:33 02/17/19 16:38 Zofran 4mg/2ml Vial IV 02/17/19 16:34 4 mg ONCE ONE Administration Vancomycin HCl 1,250 mg 02/17/19 17:45 Vancomycin 1000mg Vial IV 02/17/19 17:46 ONCE ONE Protocol ORDERS Category Date Time Status XR chest portable Stat Exams 02/17/19 16:30 Taken Blood Culture Stat Micro 02/17/19 17:13 Received - Physician Consults Physician Consulted: Lovely Time: 17:00 Reason -: Podiatry Eval/Care Comment/Response: Discussed case. Sent her photos of the patient's incisions. she feels that these appear as expected. Requests admission to PCP with consult to her. Requests vancomycin. Additional Consult: Brennan Time: 17:15 Reason -: Admission Comment/Response: Agrees to admit the patient to the hospital. We discussed the patient's clinical information, including history, exam, laboratory and radiology results and ED course. Per hospital procedure, I will write temporary bridge inpatient orders on the patient. Specific orders requested by the admitting physician: Discussed elevated liver enzymes. No imaging requested at this time. Repeat labs in the morning. Add Zosyn to vancomycin. IV fluids, pain medication, nausea medication. General Adult HPI - General Chief complaint: Nausea/Vomiting/Diarrhea Stated complaint: had surgery on the on right ankle and is runn Time Seen by Provider: 02/17/19 16:00 Mode of Arrival: Wheelchair Limitations: RECENT SURGERY TO RIGHT ANKLE Description of Symptoms (Recalled from ER Triage Doc. by RN): Had an ankle replacement on 02/[address] Murry. States that yesterday he began running a fever and vomiting, this has continued on all day today as well. Famil y is worried that this is related to his surgery. - History of Present Illness HPI narrative: The patient had right ankle replacement surgery on 02/13/[address] Murry. He had a traumatic injury of his right ankle about 8 or 9 years ago and has had 4 previous surgeries prior to the replacement. Last night he developed subjective fever and chills, vomiting. Has not been able to eat or drink. Has a sore throat, but he says he thinks that is just from all of the retching and vomiting. Has a slight cough. No diarrhea. Constipation due to his pain me dication. He is currently on Keflex, Zofran, Lovenox, ibuprofen, and Percocet. - Related Data Home Medications Medication Instructions Recorded Confirmed Ergocalciferol (Vitamin D2) 100,000 unit PO WEEKLY 02/12/19 02/17/19 [Drisdol] Ondansetron [Zofran 4mg ODT] 4 mg PO Q6H PRN 02/13/19 02/17/19 Previous Rx's Medication Instructions Recorded enoxaparin 40 mg/0.4 mL 40 mg SQ QDAY 42 Days #16.8 ml 02/04/19 subcutaneous syringe ibuprofen 800 mg tablet 800 mg PO BID #60 tab 02/04/19 Allergies Allergy/AdvReac Type Severity Reaction Status Date / Time No Known Allergies Allergy Verified 02/13/19 06:21 [facility] History - Hepatitis A Screen Drug use history?: No High risk sexual behaviors?: No History of sexually transmitted infection?: No Currently employed?: No Childcare worker?: No Do you have indoor plumbing?: Yes Do you have electricity?: Yes Attestation statement:: This patient has been screened for Hepatitis A risk factors. I have reviewed the patient's past medical history: Yes Medical History: Reports:: Osteoporosis Denies:: Cancer, Diabetes Mellitus Type 1, Diabetes Mellitus Type 2, Internal Pacemaker, MRSA, Seizures Other Medical History: Reports: Osteoporosis, Other. Denies: Blood Transfusion Reaction Laterality Cases: Right: Other Other Surgeries: Yes: No Previous Surgery. No: Pacemaker Amputation: No Fractures: Yes Comment: Right Foot surgery 2010 - Social History Educational Level: Completed High School Smoking Status: Never smoker Alcohol Intake: never Alcohol Intake Frequency:: holidays/special occasions only Substance Use Type: denies use Occupational Status: employed Housing: house Household Members: spouse Family Hx:: Diabetes, Stroke, Heart Attack, Hyperlipidemia, Hypertension ROS Obtained: Yes All systems reviewed & no additional complaints - Constitutional Constitutional: Reports chills, Reports fever(s) - ENT Ears, Nose, Mouth, and Throat: Denies nasal discharge, Reports sore throat - Cardiovascular Cardiovascular: Denies chest pain - Respiratory Respiratory: Yes cough, No dyspnea - Gastrointestinal Gastrointestingal: Reports: nausea, vomiting. Denies: abdominal pain, diarrhea - Musculoskeletal Musculoskeletal: Reports as per HPI Physical Exam - General General appearance: alert, in no apparent distress - Head Head exam: atraumatic, normocephalic - Eye Eye exam: Present: normal appearance, EOMI - ENT ENT exam: Present: mucous membranes moist - Neck Neck exam: Present: normal inspection, trachea midline - Chest Chest inspection: Present: normal inspection, symmetric chest wall rise - Respiratory Respiratory exam: Present: normal lung sounds bilaterally. Absent: respiratory distress - Cardiovascular Cardiovascular exam: Present: normal rhythm, tachycardia, normal heart sounds - Abdominal Exam Abdominal exam: Present: soft. Absent: distention, tenderness - Extremities Exam Extremities exam: Present: normal capillary refill - Neurological Exam Neurological exam: Present: alert, oriented X3, CN II-XII intact. Absent: motor sensory deficit - Psychiatric Psychiatric exam: Present: normal affect, normal mood - Skin Skin exam: Present: warm, dry - Other Other exam information: Posterior splint and bandages present on right ankle. These were taken down to expose his surgical wounds. There is some ecchymosis and mild erythema around the anterior ankle wound. No erythema seen over the posterior ankle wound or the wound on the plantar aspect of his heel. No drainage. No ascending lymphangitis. No fluctuance or signs of abscess. Distal neurovascular status intact. Sutures intact, wounds well approximated. Procedures - Miscellaneous Procedure Procedure Performed: Bandage and splint reapplied as per Dr. Murry's request. Splint Application Performed by: NICOLE RANGEL Splinting material: Xeroform, 4 x 4's, Kerlix, Webril, Orthoglass + MALACHI wrap Type of splint: Posterior short leg Location: Right leg Patient tolerance: Patient tolerated the procedure well with no immediate complications Neurovascular status intact with good sensation, capillary refill and movement before and after splint applied.
[2019-02-17 16:51] LABS: Microscopic, Urine URINE MICROSCOPIC (MICROSCOPIC)
[2019-02-17 16:54] LABS: Lymphocytes % 4 % (10-50); Monocytes % 3 % (2-9); Neutrophils % 90 % (42-76); Total Cells Counted 100
[2019-02-17 16:59] LABS: Appearance,Urine SL CLOUDY (Clear); Blood, Urine TRACE-I (Negative); Color,Urine DK YELLOW (Yellow); Glucose,Urine (UA) Negative (Negative); Ketones,Urine TRACE (Negative); Leukocyte Esterase,Urine Negative (Negative); Protein,Urine TRACE (Negative)
[2019-02-17 17:01] LABS: Bilirubin,Urine Negative (Negative)
[2019-02-17 17:08] LABS: Bacteria,Urine Trace /lpf; Mucus,Urine 3+ /lpf; RBC,Urine Occasional #/hpf (0-3); Squamous Epithelial Cell,Urine Occasional #/hpf (0-5); WBC,Urine Occasional #/hpf (0-3)
[2019-02-18 07:31] LABS: Basophils % 0.2 % (0.1-2.0); Eosinophils % 0.3 % (0.1-12.0); Hematocrit 37.3 % (42.0-52.0); Hemoglobin 12.5 g/dL (14.1-18.0); Lymphocytes # 0.5 K/mm3 (0.7-4.5); Lymphocytes % 4.5 % (10-50); Mean Corpuscular HGB Conc 33.5 g/dL (31.8-35.4); Mean Corpuscular Volume 91.5 fl (80-94); Mean Platelet Volume 7.5 fl (7.4-10.4); Monocytes # 0.6 K/mm3 (0.1-1.0); Monocytes % 5.6 % (1.7-9.3); Neutrophils # 9.5 K/mm3 (1.8-7.8); Neutrophils % 89.3 % (37.0-80.0); Platelet Count 245 K/mm3 (142-424); Red Blood Count 4.07 M/mm3 (4.60-6.20); Red Cell Distribution Width 12.7 % (11.5-17.5); White Blood Count 10.6 K/mm3 (4.8-10.8)
[2019-02-18 08:00] LABS: Albumin Level 2.7 gm/dL (3.4-5.0); Albumin/Globulin Ratio 0.8 (1.1-1.8); Anion Gap 14.8 mEq/L (5-15); Bilirubin,Total 1.5 mg/dL (0.2-1.0); Calcium 8.8 mg/dL (8.5-10.1); Globulin 3.6 gm/dl (1.3-3.2); Total Protein,Serum 6.3 gm/dL (6.4-8.2)
--- NOTE | 2019-02-18 08:11 | History & Physical Report ---
*Admission Date: 02/17/19 *Chief complaint: Nausea and fever *History of present illness: 53-year-old male with recent right ankle replacement on February 13 presented to the emergency department with 24 hours of nausea, fevers and vomiting. Patient reports on Monday evening he developed chills that was soon followed by subjective fevers then nausea and vomiting. Patient does not recall how many episodes of vomiting he had and at the time he did not have any diarrhea. Symptoms continued throughout the night on Monday but had improved enough by Monday morning that he was able to tolerate eating some toast for breakfast and chicken broth for lunch. However fevers kept returning and nausea was returning intermittently. Patient sought treatment at the emergency department. In the ER review of systems was positive for a slight cough. Patient denied any significant change in the level of pain coming from his right ankle replacement. He himself did not believe the foot and ankle were showing any signs of infection. The ER physician took pictures of the patient's ankle and sent him to Dr. Murry. Decision was made to admit the patient for IV fluids, IV antibiotics and repeat labs. Patient was noted to have elevated liver function tests on admission. [facility] History I have reviewed the patient's past medical history: Yes Medical History: Reports:: Osteoporosis Denies:: Cancer, Diabetes Mellitus Type 1, Diabetes Mellitus Type 2, Internal Pacemaker, MRSA, Seizures *Have you ever received a pneumonia vaccine?: No *Have you received a flu vaccine this season?: No Other Medical History: Reports: Osteoporosis, Other. Denies: Blood Transfusion Reaction Laterality Cases: Right: Other Other Surgeries: Yes: Other (Right ankle replacement January 2019). No: Pacemaker Amputation: No Fractures: Yes - *Social History Educational Level: Completed High School Smoking Status: Never smoker Alcohol Intake: never Alcohol Intake Frequency:: holidays/special occasions only Substance Use Type: denies use *Occupational Status:: employed Housing: house Household Members: spouse *Travel in the last 8 weeks: None Family Hx:: Diabetes, Stroke, Heart Attack, Hyperlipidemia, Hypertension Review of Systems - Review of Systems Review of systems:: pertinent systems reviewed and negative unless documented below Meds Home Medications Medication Instructions Recorded Confirmed Type enoxaparin 40 mg/0.4 mL 40 mg SQ QDAY 42 Days #16.8 ml 02/04/19 02/17/19 Rx subcutaneous syringe ibuprofen 800 mg tablet 800 mg PO BID #60 tab 02/04/19 02/17/19 Rx Ergocalciferol (Vitamin D2) 100,000 unit PO WEEKLY 02/12/19 02/17/19 History [Drisdol] Ondansetron [Zofran 4mg ODT] 4 mg PO Q6H PRN 02/13/19 02/17/19 History Allergies Allergy/AdvReac Type Severity Reaction Status Date / Time No Known Allergies Allergy Verified 02/13/19 06:21 Exam Vital signs and Labs for Last 24 Hours: Temp Pulse Resp BP Pulse Ox 98.0 F 62 16 115/86 94 L 02/18/19 04:00 02/18/19 04:00 02/18/19 04:00 02/18/19 04:00 02/18/19 04:00 Laboratory Results - last 24 hr 02/17/19 15:48: Urine Color Dk yellow, Urine Appearance Sl cloudy, Urine pH 6.0, Ur Specific [place] 1.020, Urine Protein Trace, Urine Glucose (UA) Negative, Urine Ketones Trace, Urine Blood Trace-i, Urine Nitrate Negative, Urine Bilirubin Negative, Urine Urobilinogen 1.0, Ur Leukocyte Esterase Negative, Urine RBC Occasional, Urine WBC Occasional, Ur Squamous Epith Cells Occasional, Urine Bacteria Trace, Urine Mucus 3+ 02/17/19 15:52: WBC 14.6 H, RBC 4.46 L, Hgb 13.7 L, Hct 40.0 L, MCV 89.6, MCH 30.8, MCHC 34.4, RDW 12.6, Plt Count 312, MPV 8.3, Neut % (Auto) 88.5 H, Lymph % (Auto) 5.2 L, [place] % (Auto) 6.0, Eos % (Auto) 0.1, Baso % (Auto) 0.2, Neut # (Auto) 12.9 H, Lymph # (Auto) 0.8, [place] # (Auto) 0.9, Eos # (Auto) 0.0, Baso # (Auto) 0.0, Total Counted 100, Neutrophils % (Manual) 90 H, Band Neutrophils % 3.0, Lymphocytes % (Manual) 4 L, Monocytes % (Manual) 3, Platelet Estimate Normal 02/17/19 15:52: Sodium 134 L, Potassium 3.7, Chloride 98, Carbon Dioxide 24, Anion Gap 15.7 H, BUN 14, Creatinine 1.23, Estimated Creat Clear 67, Estimated GFR 62, Est GFR ( Amer) 74, Glucose 121 H, Calcium 9.4, Total Bilirubin 1.3 H, AST 81 H, ALT 170 H, Alkaline Phosphatase 150 H, Total Protein 7.6, Albumin 3.3 L, Globulin 4.3 H, Albumin/Globulin Ratio 0.8 L 02/17/19 15:52: ESR 76 H 02/17/19 15:52: C-Reactive Protein 11.5 H 02/17/19 16:32: Influenza Type A Ag Negative, Influenza Type B Ag Negative 02/17/19 17:13: Lactate 0.8 02/18/19 07:08: WBC 10.6 D, RBC 4.07 L, Hgb 12.5 L, Hct 37.3 L, MCV 91.5, MCH 30.7, MCHC 33.5, RDW 12.7, Plt Count 245, MPV 7.5, Neut % (Auto) 89.3 H, Lymph % (Auto) 4.5 L, [place] % (Auto) 5.6, Eos % (Auto) 0.3, Baso % (Auto) 0.2, Neut # (Auto) 9.5 H, Lymph # (Auto) 0.5 L, [place] # (Auto) 0.6, Eos # (Auto) 0.0, Baso # (Auto) 0.0 02/18/19 07:08: Sodium 140, Potassium 3.8, Chloride 105, Carbon Dioxide 24, Anion Gap 14.8, BUN 16, Creatinine 1.15, Estimated Creat Clear 67, Estimated GFR 67, Est GFR ( Amer) 80, Glucose 111 H, Calcium 8.8, Total Bilirubin 1.5 H , AST 139 H D, ALT 189 H, Alkaline Phosphatase 140 H, Total Protein 6.3 L, Albumin 2.7 L D, Globulin 3.6 H, Albumin/Globulin Ratio 0.8 L I & O for Last 24 hours: Intake & Output 02/15/19 02/16/19 02/17/19 02/18/19 11:59 11:59 11:59 11:59 Intake Total 1000 / 1000 Output Total 500 / 500 Balance 500 / 500 Weight 139 lb 8.983 oz Narrative: Patient appears comfortable sitting in bed. Pupils are reactive to light. Oropharynx is moist. Neck is without lymphadenopathy. Lungs are clear to auscultation. Heart has a regular rate and rhythm. Abdomen is soft, nontender with active bowel sounds. Skin is well-hydrated. Right lower leg is bandaged. Assessment and Plan (1) Postoperative fever Current visit: Yes Status: Acute Category: Medical Code(s): R50.82 - Postprocedural fever At this time it would appear that his fever may be due to to a GI illness, possibly even hepatitis. Hepatitis serologies are in process. There are no signs of infection from the surgical site. Continue broad-spectrum antibiotics and IV fluids and await podiatry evaluation (2) Elevated liver enzymes Current visit: Yes Status: Acute Category: Medical Code(s): R74.8 - Abnormal levels of other serum enzymes Await liver serology for hepatitis testing. Repeat liver function test in a.m. (3) Vomiting Current visit: Yes Status: Acute Qualifiers: Vomiting type: unspecified Vomiting Intractability: intractable Nausea presence: with nausea Qualified Code(s): R11.2 - Nausea with vomiting, unspecified Category: Medical Code(s): R11.10 - Vomiting, unspecified Patient will be on a liquid diet
--- NOTE | 2019-02-18 10:05 | Pharmacy Consult Notes ---
[facility] Pharmacy VTE Monitoring - Patient Demographics Admission date: 02/17/19 Report Date: 02/18/19 Time: 10:04 Allergies/Adverse Reactions: Patient Allergies No Known Allergies Allergy (Verified 02/13/19 06:21) Height: 1.65 m Weight: 63.304 kg Patient Problems: Current Active Problems Elevated liver enzymes (Acute) Postoperative fever (Acute) Vomiting (Acute) - VTE Risk Labs: VTE Related Lab Results Hgb 12.5 g/dL (14.1-18.0) L 02/18/19 07:08 Hct 37.3 % (42.0-52.0) L 02/18/19 07:08 Plt Count 245 K/mm3 (142-424) 02/18/19 07:08 BUN 16 mg/dL (7-18) 02/18/19 07:08 Creatinine 1.15 mg/dL (0.70-1.30) 02/18/19 07:08 Estimated Creat Clear 67 mL/min (50-200) 02/18/19 07:08 Was VTE Risk Assessment Performed: Yes VTE Score: 4 VTE Risk Level: Low Risk - Prophylaxis VTE Prophylaxis Ordered?: Yes Types of VTE Prophylaxis: Pharmacological Pharmacologic Type: Enoxaparin
[2019-02-18 10:51] LABS: Lymphocytes % 5 % (10-50); Monocytes % 4 % (2-9); Neutrophils % 87 % (42-76); RBC Morphology Normal; Total Cells Counted 100
--- NOTE | 2019-02-18 10:54 | Pharmacy Consult Notes ---
- Pharmacy Consult Date: 02/18/19 Time: 10:54 Referring provider: DR. FATIMA Reason for Consult:: VANCOMYCIN DOSING Allergies and ADEs:: Allergies Allergy/AdvReac Type Severity Reaction Status Date / Time No Known Allergies Allergy Verified 02/13/19 06:21 Home Medications:: Home Medications Medication Instructions Recorded Confirmed Type ibuprofen 800 mg tablet 800 mg PO BID #60 tab 02/04/19 02/17/19 Rx Ergocalciferol (Vitamin D2) 100,000 unit PO WEEKLY 02/12/19 02/17/19 History [Drisdol] Ondansetron [Zofran 4mg ODT] 4 mg PO Q6H PRN 02/13/19 02/17/19 History Enoxaparin Sodium [Lovenox 40 mg SQ DAILY 02/18/19 02/18/19 History 40mg/0.4mL syringe] Oxycodone HCl/Acetaminophen 1 tab PO Q6HP PRN 02/18/19 02/18/19 History [Percocet 7.5/325mg tablet] cephALEXin [cephALEXin 500mg 500 mg PO BID 02/18/19 02/18/19 History capsule*] Height: 1.65 m Weight: 63.304 kg Laboratory Results:: Laboratory Results - last 24 hr 02/17/19 15:48: Urine Color Dk yellow, Urine Appearance Sl cloudy, Urine pH 6.0, Ur Specific [place] 1.020, Urine Protein Trace, Urine Glucose (UA) Negative, U rine Ketones Trace, Urine Blood Trace-i, Urine Nitrate Negative, Urine Bilirubin Negative, Urine Urobilinogen 1.0, Ur Leukocyte Esterase Negative, Urine RBC Occasional, Urine WBC Occasional, Ur Squamous Epith Cells Occasional, Urine Bacteria Trace, Urine Mucus 3+ 02/17/19 15:52: WBC 14.6 H, RBC 4.46 L, Hgb 13.7 L, Hct 40.0 L, MCV 89.6, MCH 30.8, MCHC 34.4, RDW 12.6, Plt Count 312, MPV 8.3, Neut % (Auto) 88.5 H, Lymph % (Auto) 5.2 L, [place] % (Auto) 6.0, Eos % (Auto) 0.1, Baso % (Auto) 0.2, Neut # (Auto) 12.9 H, Lymph # (Auto) 0.8, [place] # (Auto) 0.9, Eos # (Auto) 0.0, Baso # (Auto) 0.0, Total Counted 100, Neutrophils % (Manual) 90 H, Band Neutrophils % 3.0, Lymphocytes % (Manual) 4 L, Monocytes % (Manual) 3, Platelet Estimate Normal 02/17/19 15:52: Sodium 134 L, Potassium 3.7, Chloride 98, Carbon Dioxide 24, Anion Gap 15.7 H, BUN 14, Creatinine 1.23, Estimated Creat Clear 67, Estimated GFR 62, Est GFR ( Amer) 74, Glucose 121 H, Calcium 9.4, Total Bilirubin 1.3 H, AST 81 H, ALT 170 H, Alkaline Phosphatase 150 H, Total Protein 7.6, Albumin 3.3 L, Globulin 4.3 H, Albumin/Globulin Ratio 0.8 L 02/17/19 15:52: ESR 76 H 02/17/19 15:52: C-Reactive Protein 11.5 H 02/17/19 16:32: Influenza Type A Ag Negative, Influenza Type B Ag Negative 02/17/19 17:13: Lactate 0.8 02/18/19 07:08: WBC 10.6 D, RBC 4.07 L, Hgb 12.5 L, Hct 37.3 L, MCV 91.5, MCH 30.7, MCHC 33.5, RDW 12.7, Plt Count 245, MPV 7.5, Neut % (Auto) 89.3 H, Lymph % (Auto) 4.5 L, [place] % (Auto) 5.6, Eos % (Auto) 0.3, Baso % (Auto) 0.2, Neut # (Auto) 9.5 H, Lymph # (Auto) 0.5 L, [place] # (Auto) 0.6, Eos # (Auto) 0.0, Baso # (Auto) 0.0, Total Counted 100, Neutrophils % (Manual) 87 H, Band Neutrophils % 2.0, Lymphocytes % (Manual) 5 L, Monocytes % (Manual) 4, Metamyelocytes % 2.0 H, Platelet Estimate Normal, RBC Morphology Normal 02/18/19 07:08: Sodium 140, Potassium 3.8, Chloride 105, Carbon Dioxide 24, Anion Gap 14.8, BUN 16, Creatinine 1.15, Estimated Creat Clear 67, Estimated GFR 67, Est GFR ( Amer) 80, Glucose 111 H, Calcium 8.8, Total Bilirubin 1.5 H , AST 139 H D, ALT 189 H, Alkaline Phosphatase 140 H, Total Protein 6.3 L, Albumin 2.7 L D, Globulin 3.6 H, Albumin/Globulin Ratio 0.8 L Medical History: Reports:: Osteoporosis Denies:: Cancer, Diabetes Mellitus Type 1, Diabetes Mellitus Type 2, Internal Pacemaker, MRSA, Seizures Assessment and Plan (1) Postoperative fever Current visit: Yes Status: Acute Category: Medical Code(s): R50.82 - Postprocedural fever (2) Elevated liver enzymes Current visit: Yes Status: Acute Category: Medical Code(s): R74.8 - Abnormal levels of other serum enzymes (3) Vomiting Current visit: Yes Status: Acute Qualifiers: Vomiting type: unspecified Vomiting Intractability: intractable Nausea presence: with nausea Qualified Code(s): R11.2 - Nausea with vomiting, unspecified Category: Medical Code(s): R11.10 - Vomiting, unspecified - Assessment and plan all Dx Assessment and Plan for all problems:: BASED ON PATIENT FACTORS, RECOMMEND VANCOMYCIN 1250 MG IV Q18H. PHARMACY WILL FO LLOW DAILY AND ADJUST APPROPRIATE.
--- NOTE | 2019-02-18 12:30 | Consult Report ---
*Admission Date: 02/17/19 *Reason for consult:: Post Op Fever *History of present illness: Mr. Rinaldi is a 53-year-old male who was admitted 02/17/2019 for postop fever which started Monday. Patient underwent a total ankle replacement 02/13/2019. He denies pain to the surgical site. He denies pain to the right lower extremity. He reports this morning he is able to take down liquids without throwing them up. He states the fever and chills have stopped. Overall he just complains of fatigue. Review of Systems - Review of Systems Review of systems:: pertinent systems reviewed and negative unless documented below - Constitutional Reports fatigue, Denies chills - Eyes Denies blurry vision - ENT Denies abnormal hearing - *Cardiovascular Denies chest pain, Denies shortness of breath - *Respiratory Denies chest congestion, Denies shortness of breath - *Gastrointestinal Reports nausea, Denies vomiting - *Genitourinary Denies difficulty urinating - *Musculoskeletal Denies body aches - Integumentary/Breasts Reports dry skin - *Neurologic Denies abnormal walking - Psychiatric Denies abnormal sleep pattern - Endocrine Denies cold intolerance - Allergic/Immunologic Reports GI upset with certain foods [facility] History I have reviewed the patient's past medical history: Yes Medical History: Reports:: Osteoporosis Denies:: Cancer, Diabetes Mellitus Type 1, Diabetes Mellitus Type 2, Internal Pacemaker, MRSA, Seizures *Have you ever received a pneumonia vaccine?: No *Have you received a flu vaccine this season?: No Other Medical History: Reports: Osteoporosis, Other. Denies: Blood Transfusion Reaction Laterality Cases: Right: Other Other Surgeries: Yes: No Previous Surgery, Other (Right ankle replacement January 2019). No: Pacemaker Amputation: No Fractures: Yes - *Social History Educational Level: Completed High School Smoking Status: Former smoker Alcohol Intake: former (20 years ago) Alcohol Intake Frequency:: holidays/special occasions only Substance Use Type: denies use *Occupational Status:: employed Housing: house Household Members: spouse *Travel in the last 8 weeks: None Family Hx:: Diabetes, Stroke, Heart Attack, Hyperlipidemia, Hypertension Meds Home Medications Medication Instructions Recorded Confirmed Type ibuprofen 800 mg tablet 800 mg PO BID #60 tab 02/04/19 02/17/19 Rx Ergocalciferol (Vitamin D2) 100,000 unit PO WEEKLY 02/12/19 02/17/19 History [Drisdol] Ondansetron [Zofran 4mg ODT] 4 mg PO Q6H PRN 02/13/19 02/17/19 History Enoxaparin Sodium [Lovenox 40 mg SQ DAILY 02/18/19 02/18/19 History 40mg/0.4mL syringe] Oxycodone HCl/Acetaminophen 1 tab PO Q6HP PRN 02/18/19 02/18/19 History [Percocet 7.5/325mg tablet] cephALEXin [cephALEXin 500mg 500 mg PO BID 02/18/19 02/18/19 History capsule*] Allergies Allergy/AdvReac Type Severity Reaction Status Date / Time No Known Allergies Allergy Verified 02/13/19 06:21 Exam Vital signs and Labs for Last 24 Hours: Temp Pulse Resp BP Pulse Ox 98.4 F 90 21 121/84 97 02/18/19 08:00 02/18/19 08:00 02/18/19 08:00 02/18/19 08:00 02/18/19 08:00 Laboratory Results - last 24 hr 02/17/19 15:48: Urine Color Dk yellow, Urine Appearance Sl cloudy, Urine pH 6.0, Ur Specific [place] 1.020, Urine Protein Trace, Urine Glucose (UA) Negative, Urine Ketones Trace, Urine Blood Trace-i, Urine Nitrate Negative, Urine Bilirubin Negative, Urine Urobilinogen 1.0, Ur Leukocyte Esterase Negative, Urine RBC Occasional, Urine WBC Occasional, Ur Squamous Epith Cells Occasional, Urine Bacteria Trace, Urine Mucus 3+ 02/17/19 15:52: WBC 14.6 H, RBC 4.46 L, Hgb 13.7 L, Hct 40.0 L, MCV 89.6, MCH 30.8, MCHC 34.4, RDW 12.6, Plt Count 312, MPV 8.3, Neut % (Auto) 88.5 H, Lymph % (Auto) 5.2 L, [place] % (Auto) 6.0, Eos % (Auto) 0.1, Baso % (Auto) 0.2, Neut # (Auto) 12.9 H, Lymph # (Auto) 0.8, [place] # (Auto) 0.9, Eos # (Auto) 0.0, Baso # (Auto) 0.0, Total Counted 100, Neutrophils % (Manual) 90 H, Band Neutrophils % 3.0, Lymphocytes % (Manual) 4 L, Monocytes % (Manual) 3, Platelet Estimate Normal 02/17/19 15:52: Sodium 134 L, Potassium 3.7, Chloride 98, Carbon Dioxide 24, Anion Gap 15.7 H, BUN 14, Creatinine 1.23, Estimated Creat Clear 67, Estimated GFR 62, Est GFR ( Amer) 74, Glucose 121 H, Calcium 9.4, Total Bilirubin 1.3 H, AST 81 H, ALT 170 H, Alkaline Phosphatase 150 H, Total Protein 7.6, Albumin 3.3 L, Globulin 4.3 H, Albumin/Globulin Ratio 0.8 L 02/17/19 15:52: ESR 76 H 02/17/19 15:52: C-Reactive Protein 11.5 H 02/17/19 16:32: Influenza Type A Ag Negative, Influenza Type B Ag Negative 02/17/19 17:13: Lactate 0.8 02/18/19 07:08: WBC 10.6 D, RBC 4.07 L, Hgb 12.5 L, Hct 37.3 L, MCV 91.5, MCH 30.7, MCHC 33.5, RDW 12.7, Plt Count 245, MPV 7.5, Neut % (Auto) 89.3 H, Lymph % (Auto) 4.5 L, [place] % (Auto) 5.6, Eos % (Auto) 0.3, Baso % (Auto) 0.2, Neut # (Auto) 9.5 H, Lymph # (Auto) 0.5 L, [place] # (Auto) 0.6, Eos # (Auto) 0.0, Baso # (Auto) 0.0, Total Counted 100, Neutrophils % (Manual) 87 H, Band Neutrophils % 2.0, Lymphocytes % (Manual) 5 L, Monocytes % (Manual) 4, Metamyelocytes % 2.0 H, Platelet Estimate Normal, RBC Morphology Normal 02/18/19 07:08: Sodium 140, Potassium 3.8, Chloride 105, Carbon Dioxide 24, Anion Gap 14.8, BUN 16, Creatinine 1.15, Estimated Creat Clear 67, Estimated GFR 67, Est GFR ( Amer) 80, Glucose 111 H, Calcium 8.8, Total Bilirubin 1.5 H , AST 139 H D, ALT 189 H, Alkaline Phosphatase 140 H, Total Protein 6.3 L, Albumin 2.7 L D, Globulin 3.6 H, Albumin/Globulin Ratio 0.8 L I & O for Last 24 hours: Intake & Output 02/16/19 02/17/19 02/18/19 02/19/19 11:59 11:59 11:59 11:59 Intake Total 1360 / 1360 Output Total 500 / 500 Balance 860 / 860 Weight 139 lb 8.983 oz - *Routine HEENT Exam Head: Present: normocephalic - *Routine Neck Exam Present: supple. Absent: JVD - *Routine Respiratory Exam Present: CTA bilaterally - *Routine Cardiovascular Exam Present: RRR - *Routine Abdominal Exam Present: soft. Absent: guarding - *Routine Rectal Exam Patient deferred: visual exam - *Routine Exam Patient deferred: penile exam - *Routine Extremities Exam Present: edema (minimal to RLE), pulses intact, normal capillary refill. Absent: calf tenderness - *Routine Skin Exam Present: intact, dry - *Routine Neurological Exam Present: alert, moving all extremities, normal tone - Detailed Lower Extremity Exam Comments: Right lower extremity posterior splint and dressing clean dry and intact with no strikethrough. Dressing removed. Surgical incision sites looks stable. Minimal erythema and edema noted. No fluctuance or purulence. No drainage. No ascending cellulitis. No increased warmth at the incision sites. Sutures are clean dry and intact. No acute signs of infection to the surgical site. No calf or thigh pain noted bilaterally. Results - Labs Result Diagrams: 02/18/19 07:08 02/18/19 07:08 Labs: Abnormal lab results 02/17/19 02/17/19 02/17/19 Range/Units 15:52 15:52 15:52 WBC 14.6 H (4.8-10.8) K/mm3 RBC 4.46 L (4.60-6.20) M/mm3 Hgb 13.7 L (14.1-18.0) g/dL Hct 40.0 L (42.0-52.0) % Neut % (Auto) 88.5 H (37.0-80.0) % Lymph % (Auto) 5.2 L (10-50) % Neut # (Auto) 12.9 H (1.8-7.8) K/mm3 Lymph # (Auto) (0.7-4.5) K/mm3 Neutrophils % (Manual) 90 H (42-76) % Lymphocytes % (Manual) 4 L (10-50) % Metamyelocytes % (0-1) ESR 76 H (0-20) mm/hr Sodium 134 L (136-145) mmol/L Anion Gap 15.7 H (5-15) mEq/L Glucose 121 H (74-106) mg/dL Total Bilirubin 1.3 H (0.2-1.0) mg/dL AST 81 H (15-37) U/L ALT 170 H (12-78) U/L Alkaline Phosphatase 150 H (46-116) U/L C-Reactive Protein (0.0-0.9) mg/dL Total Protein (6.4-8.2) gm/dL Albumin 3.3 L (3.4-5.0) gm/dL Globulin 4.3 H (1.3-3.2) gm/dl Albumin/Globulin Ratio 0.8 L (1.1-1.8) 02/17/19 02/18/19 02/18/19 Range/Units 15:52 07:08 07:08 WBC (4.8-10.8) K/mm3 RBC 4.07 L (4.60-6.20) M/mm3 Hgb 12.5 L (14.1-18.0) g/dL Hct 37.3 L (42.0-52.0) % Neut % (Auto) 89.3 H (37.0-80.0) % Lymph % (Auto) 4.5 L (10-50) % Neut # (Auto) 9.5 H (1.8-7.8) K/mm3 Lymph # (Auto) 0.5 L (0.7-4.5) K/mm3 Neutrophils % (Manual) 87 H (42-76) % Lymphocytes % (Manual) 5 L (10-50) % Metamyelocytes % 2.0 H (0-1) ESR (0-20) mm/hr Sodium (136-145) mmol/L Anion Gap (5-15) mEq/L Glucose 111 H (74-106) mg/dL Total Bilirubin 1.5 H (0.2-1.0) mg/dL AST 139 H D (15-37) U/L ALT 189 H (12-78) U/L Alkaline Phosphatase 140 H (46-116) U/L C-Reactive Protein 11.5 H (0.0-0.9) mg/dL Total Protein 6.3 L (6.4-8.2) gm/dL Albumin 2.7 L D (3.4-5.0) gm/dL Globulin 3.6 H (1.3-3.2) gm/dl Albumin/Globulin Ratio 0.8 L (1.1-1.8) H & H 02/17/19 02/18/19 Range/Units 15:52 07:08 Hgb 13.7 L 12.5 L (14.1-18.0) g/dL Hct 40.0 L 37.3 L (42.0-52.0) % All other labs normal. Assessment and Plan (1) Postoperative fever Current visit: Yes Status: Acute Category: Medical Code(s): R50.82 - Pos tprocedural fever (2) Elevated liver enzymes Current visit: Yes Status: Acute Category: Medical Code(s): R74.8 - Abnormal levels of other serum enzymes (3) Vomiting Current visit: Yes Status: Acute Qualifiers: Vomiting type: unspecified Vomiting Intractability: intractable Nausea presence: with nausea Qualified Code(s): R11.2 - Nausea with vomiting, unspecified Category: Medical Code(s): R11.10 - Vomiting, unspecified (4) Osteoporosis Current visit: No Status: Acute Category: Medical Code(s): M81.0 - Age-related osteoporosis without current pathological fracture (5) Post-traumatic osteoarthritis of right ankle Start date: 02/13/19 Current visit: No Status: Resolved Category: Medical Code(s): M19.171 - Post-traumatic osteoarthritis, right ankle and foot - Assessment and plan all Dx Assessment and Plan for all problems:: Sx: 02/13/19: Right total ankle replacement, RADU, synovectomy, hardware removal POD # 5 Patient overall seems to be doing better today. He denies vomiting and is able to keep down liquids. Patient does have some elevated liver enzymes. His white count has trended down. He is afebrile currently. I discussed reasons for postop infection with the patient. Likely postop fever 3 to 4 days after surgery is related to chest, UTI or in this case with the elevated liver enzymes possible GI issues/hepatitis. 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 His preop lab work liver enzymes were all within normal limits. Dr. Amin ordered hepatic serology, results pending. The surgical site looks stable with no signs of surgical incision infection. 1. Applied new posterior splint at bedside -Xeroform, 4 x 4's, Kerlix, soft roll, posterior splint, Albert bandages 2. NWB to RLE 3. Okay to get out of bed so long as he remains strict NWB to RLE 4. Elevate, ice behind the right knee 5. Dispensed new incentive spirometer to the bedside, continue every hour 6. Continue IV Vanco, Zosyn 7. Awaiting liver labs/serology 8. Plan to see patient in am
[2019-02-19 07:07] LABS: Basophils % 0.5 % (0.1-2.0); Eosinophils # 0.1 K/mm3 (0.0-0.4); Eosinophils % 1.5 % (0.1-12.0); Hematocrit 32.4 % (42.0-52.0); Lymphocytes # 0.6 K/mm3 (0.7-4.5); Lymphocytes % 9.2 % (10-50); Mean Corpuscular HGB Conc 33.3 g/dL (31.8-35.4); Mean Corpuscular Volume 91.5 fl (80-94); Mean Platelet Volume 7.8 fl (7.4-10.4); Monocytes # 0.6 K/mm3 (0.1-1.0); Monocytes % 8.6 % (1.7-9.3); Neutrophils # 5.4 K/mm3 (1.8-7.8); Neutrophils % 80.1 % (37.0-80.0); Platelet Count 219 K/mm3 (142-424); Red Blood Count 3.54 M/mm3 (4.60-6.20); Red Cell Distribution Width 12.7 % (11.5-17.5); White Blood Count 6.7 K/mm3 (4.8-10.8)
--- NOTE | 2019-02-19 07:11 | Progress Note ---
Internal Medicine - PN: Subj *Date: 02/19/19 *Time: 07:10 Interval history: Patient with no complaints this morning. He has not had any further vomiting. He estimates in the last 24 hours he has had 5 loose stools. He has not had any documented fevers. Exam Vital signs and Labs for Last 24 Hours: Temp Pulse Resp BP Pulse Ox 97.7 F 67 18 104/70 L 100 02/19/19 03:58 02/19/19 03:58 02/19/19 03:58 02/19/19 03:58 02/19/19 03:58 Laboratory Results - last 24 hr 02/18/19 07:08: WBC 10.6 D, RBC 4.07 L, Hgb 12.5 L, Hct 37.3 L, MCV 91.5, MCH 30.7, MCHC 33.5, RDW 12.7, Plt Count 245, MPV 7.5, Neut % (Auto) 89.3 H, Lymph % (Auto) 4.5 L, [place] % (Auto) 5.6, Eos % (Auto) 0.3, Baso % (Auto) 0.2, Neut # (Auto) 9.5 H, Lymph # (Auto) 0.5 L, [place] # (Auto) 0.6, Eos # (Auto) 0.0, Baso # (Auto) 0.0, Total Counted 100, Neutrophils % (Manual) 87 H, Band Neutrophils % 2.0, Lymphocytes % (Manual) 5 L, Monocytes % (Manual) 4, Metamyelocytes % 2.0 H, Platelet Estimate Normal, RBC Morphology Normal 02/18/19 07:08: Sodium 140, Potassium 3.8, Chloride 105, Carbon Dioxide 24, Anion Gap 14.8, BUN 16, Creatinine 1.15, Estimated Creat Clear 67, Estimated GFR 67, Est GFR ( Amer) 80, Glucose 111 H, Calcium 8.8, Total Bilirubin 1.5 H , AST 139 H D, ALT 189 H, Alkaline Phosphatase 140 H, Total Protein 6.3 L, Albumin 2.7 L D, Globulin 3.6 H, Albumin/Globulin Ratio 0.8 L 02/19/19 06:28: WBC 6.7 D, RBC 3.54 L, Hct 32.4 L, MCV 91.5, MCH 30.5, MCHC 33.3, RDW 12.7, Plt Count 219, MPV 7.8, Neut % (Auto) 80.1 H, Lymph % (Auto) 9.2 L, [place] % (Auto) 8.6, Eos % (Auto) 1.5, Baso % (Auto) 0.5, Neut # (Auto) 5.4, Lymph # (Auto) 0.6 L, [place] # (Auto) 0.6, Eos # (Auto) 0.1, Baso # (Auto) 0.0 I & O for Last 24 hours: Intake & Output 02/16/19 02/17/19 02/18/19 02/19/19 11:59 11:59 11:59 11:59 Intake Total 1360 / 1360 3256 / 3256 Output Total 500 / 500 875 / 875 Balance 860 / 860 2381 / 2381 Weight 139 lb 8.983 oz 139 lb 6 oz Narrative: Patient looks well. There is no scleral icterus. Oropharynx is moist. Lungs are clear. Heart has a regular rate and rhythm. Abdomen is soft and nontender Assessment and Plan (1) Postoperative fever Current visit: Yes Status: Acute Category: Medical Code(s): R50.82 - Postprocedural fever (2) Elevated liver enzymes Current visit: Yes Status: Acute Category: Medical Code(s): R74.8 - Abnormal levels of other serum enzymes (3) Vomiting Current visit: Yes Status: Acute Qualifiers: Vomiting type: unspecified Vomiting Intractability: intractable Nausea presence: with nausea Qualified Code(s): R11.2 - Nausea with vomiting, unspecified Category: Medical Code(s): R11.10 - Vomiting, unspecified (4) Osteoporosis Current visit: No Status: Acute Category: Medical Code(s): M81.0 - Age- related osteoporosis without current pathological fracture (5) Post-traumatic osteoarthritis of right ankle Start date: 02/13/19 Current visit: No Status: Resolved Category: Medical Code(s): M19.171 - Post-traumatic osteoarthritis, right ankle and foot - Assessment and plan all Dx Assessment and Plan for all problems:: 1. Patient has been afebrile for 24 hours. I am going to advance his diet. If he tolerates diet he can be discharged home later today. Hepatitis serologies are pending. Diarrhea panel has been ordered this morning. 2. His fever does not seem to be related to a postoperative surgical site infection. He will be maintained on antibiotics until discharge, discharge is likely later today
--- NOTE | 2019-02-19 07:13 | Discharge Summary ---
General - General Admission date:: 02/17/19 Discharge date: 02/19/19 HPI HPI: 53-year-old male with recent right ankle replacement on February 13 presented to the emergency department with 24 hours of nausea, fevers and vomiting. Patient reports on Monday evening he developed chills that was soon followed by subjective fevers then nausea and vomiting. Patient does not recall how many episodes of vomiting he had and at the time he did not have any diarrhea. Symptoms continued throughout the night on Monday but had improved enough by Monday morning that he was able to tolerate eating some toast for breakfast and chicken broth for lunch. However fevers kept returning and nausea was returning intermittently. Patient sought treatment at the emergency department. In the ER review of systems was positive for a slight cough. Patient denied any significant change in the level of pain coming from his right ankle replacement. He himself did not believe the foot and ankle were showing any signs of infection. The ER physician took pictures of the patient's ankle and sent him to Dr. Murry. Decision was made to admit the patient for IV fluids, IV antibiotics and repeat labs. Patient was noted to have elevated liver function tests on admission. Hospital Course Hospital Course: Patient was admitted and started on broad-spectrum antibiotic coverage. Other than the fever present in the emergency department on presentation patient had no further fevers. Patient was admitted and podiatry consultation was placed. Dr. Murry did not feel like there was any signs of surgical site infection. Patient's liver enzymes were elevated which was a change. Hepatitis serologies were ordered. Patient did develop diarrhea shortly after admission. Diarrhea panel was ordered. On February 19 patient had been afebrile for 24 hours. He was tolerating a regular diet. He was discharged home later in the day and will follow up with Dr. Murry as scheduled. Patient will follow-up in the office n ext week Objective Vital signs: Temp Pulse Resp BP Pulse Ox 97.7 F 67 18 104/70 L 100 02/19/19 03:58 02/19/19 03:58 02/19/19 03:58 02/19/19 03:58 02/19/19 03:58 Results Labs on day of discharge: Labs from last 24 hours 02/19/19 02/18/19 02/18/19 06:28 07:08 07:08 WBC 6.7 D 10.6 D RBC 3.54 L 4.07 L Hgb 12.5 L Hct 32.4 L 37.3 L MCV 91.5 91.5 MCH 30.5 30.7 MCHC 33.3 33.5 RDW 12.7 12.7 Plt Count 219 245 MPV 7.8 7.5 Neut % (Auto) 80.1 H 89.3 H Lymph % (Auto) 9.2 L 4.5 L [place] % (Auto) 8.6 5.6 Eos % (Auto) 1.5 0.3 Baso % (Auto) 0.5 0.2 Neut # (Auto) 5.4 9.5 H Lymph # (Auto) 0.6 L 0.5 L [place] # (Auto) 0.6 0.6 Eos # (Auto) 0.1 0.0 Baso # (Auto) 0.0 0.0 Total Counted 100 Neutrophils % (Manual) 87 H Band Neutrophils % 2.0 Lymphocytes % (Manual) 5 L Monocytes % (Manual) 4 Metamyelocytes % 2.0 H Platelet Estimate Normal RBC Morphology Normal Sodium 140 Potassium 3.8 Chloride 105 Carbon Dioxide 24 Anion Gap 14.8 BUN 16 Creatinine 1.15 Estimated Creat Clear 67 Estimated GFR 67 Est GFR ( Amer) 80 Glucose 111 H Calcium 8.8 Total Bilirubin 1.5 H AST 139 H D ALT 189 H Alkaline Phosphatase 140 H Total Protein 6.3 L Albumin 2.7 L D Globulin 3.6 H Albumin/Globulin Ratio 0.8 L DS: Diagnosis - Discharge Diagnosis (1) Postoperative fever Status: Acute (2) Elevated liver enzymes Status: Acute (3) Vomiting Status: Acute (4) Osteoporosis Status: Acute (5) Post-traumatic osteoarthritis of right ankle Status: Resolved Discharge Plan - Patient Discharge Instructions ACTIVITY: Continue current activity DIET: continue same diet - Follow up Plan Follow up with: Sebastián Amin MD [Staff Physician] - Disposition: Home, Self-Skilled Nursing Medications: Home Medications Medication Instructions Recorded Confirmed Type ibuprofen 800 mg tablet 800 mg PO BID #60 tab 02/04/19 02/17/19 Rx Ergocalciferol (Vitamin D2) 100,000 unit PO WEEKLY 02/12/19 02/17/19 History [Drisdol] Ondansetron [Zofran 4mg ODT] 4 mg PO Q6H PRN 02/13/19 02/17/19 History Enoxaparin Sodium [Lovenox 40 mg SQ DAILY 02/18/19 02/18/19 History 40mg/0.4mL syringe] Oxycodone HCl/Acetaminophen 1 tab PO Q6HP PRN 02/18/19 02/18/19 History [Percocet 7.5/325mg tablet] cephALEXin [cephALEXin 500mg 500 mg PO BID 02/18/19 02/18/19 History capsule*] Prescriptions/Medication Reconciliation: No Action ibuprofen 800 mg tablet 800 mg PO BID #60 tab Enoxaparin Sodium [Lovenox 40mg/0.4mL syringe] 40 mg SQ DAILY Ergocalciferol (Vitamin D2) [Drisdol] 100,000 unit PO WEEKLY Ondansetron [Zofran 4mg ODT] 4 mg PO Q6H PRN PRN Reason: Nausea cephALEXin [cephALEXin 500mg capsule*] 500 mg PO BID Oxycodone HCl/Acetaminophen [Percocet 7.5/325mg tablet] 1 tab PO Q6HP PRN PRN Reason: PAIN - Problem Reconciliation Problems Reviewed?: Yes
[2019-02-19 07:27] LABS: Hemoglobin 10.8 g/dL (14.1-18.0)
[2019-02-19 08:06] LABS: Albumin Level 2.3 gm/dL (3.4-5.0); Bilirubin,Direct 0.3 mg/dL (0.0-0.2); Bilirubin,Indirect 0.4 mg/dL (0.0-0.9); Bilirubin,Total 0.7 mg/dL (0.2-1.0); Total Protein,Serum 5.6 gm/dL (6.4-8.2)
--- NOTE | 2019-02-19 09:09 | Progress Note ---
Subjective Date: 02/19/19 Time: 07:55 Principal diagnosis: Post Op Fever Interval history: Patient is resting comfortably in bed today. He denies pain to the right ankle. Patient states fevers have resolved. He denies nausea/vomiting, fever/chills, shortness of breath/chest pain and cough. PN: Obj Ex Vital signs: Temp Pulse Resp BP Pulse Ox 97.8 F 61 16 109/70 L 95 02/19/19 07:50 02/19/19 07:50 02/19/19 07:50 02/19/19 07:50 02/19/19 07:50 - Constitutional no acute distress - Routine HEENT Exam Head: Present: normocephalic Eye: Present: PERRL - Routine Neck Exam Present: supple - Routine Respiratory Exam Present: CTA bilaterally - Routine Cardiovascular Exam Present: RRR - Routine Abdominal Exam Present: soft. Absent: guarding - Routine Extremities Exam Present: pulses intact, normal capillary refill. Absent: calf tenderness - Detailed Lower Extremity Exam Comments: Right lower extremity posterior splint and dressing clean dry and intact with no strikethrough. Dressing removed. Surgical incision sites looks stable. Minimal erythema and edema noted. No fluctuance or purulence. No drainage. No ascending cellulitis. No increased warmth at the incision sites. Sutures are clean dry and intact. No acute signs of infection to the surgical site. No calf or thigh pain noted bilaterally. Progress Note: A&P (1) Postoperative fever Status: Acute Current Visit: Yes (2) Elevated liver enzymes Status: Acute Current Visit: Yes (3) Vomiting Status: Acute Current Visit: Yes (4) Osteoporosis Status: Acute Current Visit: No Assessment and Plan for All Diagnoses:: Sx: 02/13/19: Right total ankle replacement, RADU, synovectomy, hardware removal POD # 6 Patient is doing even better today-afebrile and is eating without nausea or vomiting. Patient does have some elevated liver enzymes. His white count has tr ended down from 14.[address] Amin ordered hepatic serology, results pending. The surgical site looks stable with no signs of surgical incision infection. 1. Applied new posterior splint at bedside -Xeroform, 4 x 4's, Kerlix, soft roll, posterior splint, Albert bandages 2. NWB to RLE 3. Okay to get out of bed so long as he remains strict NWB to RLE 4. Elevate, ice behind the right knee 5. Continue incentive spirometer every hour 6. Continue antibiotics at home (has Rx for Keflex, Zofran, Motrin, Lovenox, [place] for pain from surgery) 7. Awaiting liver labs/serology 8. Okay to discharge from Podiatry stand point (had f/u today in office, does not need to come in today and can follow up Monday or Monday for dressing change)
== END 2019-02-19 13:35 | disposition home or self-care (01) | DRG 864 ==
LOC: 2ND 15:27 → ER 15:27 → OBSVTOIN 17:28 → 2ND 19:00
PROVIDERS: ADMIT Family Medicine; ATTEND Family Medicine
CPT/HCPCS: 36415; 71010; 71045; 80053; 80076; 81001; 83605; 85007; 85025; 85651; 86140; 87040; 87275; 87276; 96365; 96367; 99285; J2405; J2543; J3370

== ENCOUNTER → 2019-03-06 08:13 | Outpatient (CLI) | payer BC, SELFPAY ==
--- NOTE | 2019-03-06 08:18 | XR_ITS ---
PROCEDURE: XR ANKLE WT BEARING RT MIN 3V CLINICAL INDICATION: post-op Follow-up joint replacement COMPARISON: ANKCMRT XR ankle RT min 3V from 09/14/2018 [id number] XR ankle wt bearing RT min 3V from 10/10/2018 XR ANKLE RT MIN 3V from 02/13/2019 XR ANKLE RT 2V from 02/13/2019 FINDINGS: Status post ankle joint replacement. The prosthesis at the distal tibia and at the talar dome appear intact the good alignment. There is a posterior splint in place. There is a lucency once again noted to the mid aspect of the calcaneus extending cephalad caudad. There is remodeling of the distal fibula from old fracture. IMPRESSION: Good alignment status post ankle joint replacement Dictated by: Jitendra Lockwood MD 03/07/2019 06:24 Electronically signed by Jitendra Lockwood MD in [place] 03/07/2019 06:24
== END ==
PROVIDERS: PCP Family Medicine; Visit Provider Podiatrist
DX: M25.571 Pain in right ankle and joints of right foot (principal); Z98.890 Other specified postprocedural states
CPT/HCPCS: 73610

== ENCOUNTER 2019-05-07 09:00 | Outpatient (RCR) | payer BC, SELFPAY ==
--- NOTE | 2019-04-02 11:48 | HMH.PTOPEV ---
PT Outpatient Evaluation Rehab PT Outpatient Evaluation Start: 04/02/19 11:36 Freq: Status: Active Protocol: Document 04/02/19 11:36 YAZAN (Rec: 04/02/19 11:48 YAZAN [id number]) Electronically Signed By Dominic Wang, PT 04/02/19 11:36 Outpatient Therapy Subjective History Subjective History Pt presents s/p R ankle replacement on 02/13/19. Pt reports long h/o R ankle problems originating from an initial injury ~10 yrs ago. Pt reports 'this is the 5th surgery on this ankle since the first injury'. Pt reports 'this is the best my ankle has felt and moved in years'. Pt reports some Achilles area pain/soreness, and generalized stiffness in R ankle/foot. Chief Complaint Pain,Stiff,Weakness Symptom Type Ache,Dull Symptoms Relieved By Rest/Positioning Symptoms Aggravated By Standing,Walking Prior Functional Limitations Standing,Walking Current Functional Limitations Standing,Walking,Stairs, Balance Symptom Description Intermittent Level of pain today (0-10) 0 Pain scale - at its best (0-10) 0 Pain scale - at its worst (0-10) 2 Ankle/Foot Eval Gait Observation General Gait Pattern Observation Antalgic Gait,Decrease Weight Bear (R) Assistive Device Ambulation Assistive Device Axillary Crutches Palpation Tenderness right Ankle/Foot Palpation Findings Tenderness Ankle/Foot Palpation Overall Comment 2-3/4 medial achilles insertion ROM Ankle/Foot Dorsiflexion w/Knee Extended +2 Active Range Motion (degrees) Ankle/Foot Dorsiflexion w/Knee Extended 0-2 Passive Range (degrees) Ankle/Foot Plantar Flexion Active Range 2-15 of Motion (degrees) Ankle/Foot Plantar Flexion Passive Range 0-20 of Motion (degrees) Ankle/Foot Eversion Active Range of 0-9 Motion (degrees) Ankle/Foot Eversion Passive Range of 0-15 Motion (degrees) Ankle/Foot Inversion Active Range of 0-15 Motion (degrees) Ankle/Foot Inversion Passive Range of 0-20 Motion (degrees) Ankle/Foot ROM Limitations Soft Tissue Tightness, Contracture,Pain MMT Ankle Dorsiflexion Strength Grade 4- Good- Ankle Plantarflexion Strength Grade 4- Good- Foot Eversion Strength Grade 4- Good- Foot Inversion Strength Grade 4- Good- Outpatient Therapy Assessment Impairments Pro
--- NOTE | 2019-04-30 15:04 | HMH.RHREAS ---
Rehab Reassessment Rehab OP Re-assessment Start: 04/30/19 14:42 Freq: Status: Active Protocol: Document 04/30/19 14:56 [email or web address] (Rec: 04/30/19 15:02 LOANDEISY [id number]) Electronically Signed By Dominic Wang, PT 04/30/19 14:56 Rehab Re-assessment Subjective Subjective PT REPORTS IMPROVED R ANKLE ROM, STRENTGH, AND 'I FORGET MY CANE ALL THE TIME, GUESS I DON'T NEED IT'. PT REPORTS 0-1 /10 R ANKLE PAIN ON VAS, AND FEELS 75-80% BETTER OVERALL Objective Objective Notes AROM: R ANKLE DF 0-10, PF 0-20 , INV 0-20, EVR 0-25 MMT: R ANKLE DF 4+/5, PF 4+/5, INV 4/5, EVR 4/5 TTP: R ANKLE 0-1/4 GLOBALLY FIG 8: 55.5CM Assessment Progress Assessment Progressing as Expected Assessment Notes PT W/IMPROVED ROM, STRENGTH, AND TTP Patient goals met STG'S 12/24 LTG'S 08/27 Goals Not Met STG'S 06/26, LTG'S 01/27 Plan Plan PT TO CONT. W/SKILLED P.T. TO MAKE FURTHER IMPROVEMENTS WITH ROM, STRENTGH, AND TTP TO ALLOW FOR OPTIMAL FUNCTION Frequency of Therapy 1-2X/WK Duration of therapy 4-6WKS Time and Billing Re-Eval Time 15 Re-Eval Billing Units 1 PHYSICIAN CERTIFICATION: I certify the specified therapy services for Byron Rinaldi are required, authorized, and reviewed every 30 days.
== END 2019-05-07 09:35 | disposition home or self-care (01) ==
LOC: PT 09:00
PROVIDERS: Visit Provider Podiatrist
DX: M19.171 Post-traumatic osteoarthritis, right ankle and foot (principal); Z98.890 Other specified postprocedural states
CPT/HCPCS: 97110; 97112; 97140; 97163; 97164

== ENCOUNTER 2019-05-08 10:37 | Observation (INO) ==
[2019-05-08 11:35] LABS: Basophils # 0.1 K/mm3 (0-0.2); Basophils % 1.5 % (0.1-2.0); Eosinophils # 0.1 K/mm3 (0.0-0.4); Eosinophils % 2.5 % (0.1-12.0); Hematocrit 44.9 % (42.0-52.0); Hemoglobin 15.1 g/dL (14.1-18.0); Lymphocytes # 1.1 K/mm3 (0.7-4.5); Lymphocytes % 21.5 % (10-50); Mean Corpuscular HGB Conc 33.6 g/dL (31.8-35.4); Mean Corpuscular Volume 91.8 fl (80-94); Mean Platelet Volume 7.9 fl (7.4-10.4); Monocytes # 0.4 K/mm3 (0.1-1.0); Monocytes % 7.5 % (1.7-9.3); Neutrophils # 3.5 K/mm3 (1.8-7.8); Platelet Count 309 K/mm3 (142-424); Red Blood Count 4.89 M/mm3 (4.60-6.20); Red Cell Distribution Width 13.8 % (11.5-17.5); White Blood Count 5.2 K/mm3 (4.8-10.8)
[2019-05-08 11:47] LABS: Alanine Aminotransferase 69 U/L (12-78); Albumin Level 3.8 gm/dL (3.4-5.0); Anion Gap 10.7 mEq/L (5-15); Aspartate Amino Transferase 31 U/L (15-37); Bilirubin,Total 0.3 mg/dL (0.2-1.0); Blood Urea Nitrogen 7 mg/dL (7-18); Calcium 9.2 mg/dL (8.5-10.1); Carbon Dioxide 27 mmol/L (21.0-32.0); Chloride 103 mmol/L (98-107); Glucose 116 mg/dL (74-106); Sodium 137 mmol/L (136-145); Total Protein,Serum 7.8 gm/dL (6.4-8.2)
[2019-05-08 11:48] LABS: Alkaline Phosphatase 98 U/L (46-116)
--- NOTE | 2019-05-08 12:42 | Emergency Department Note ---
ED Disposition Clinical Impression: Hypertensive emergency, Dizziness Sinusitis Qualifiers: Sinusitis location: unspecified location Chronicity: acute Recurrence: not specified as recurrent Qualified Code(s): J01.90 - Acute sinusitis, unspecified Disposition: Admitted as Observation Condition on Discharge: Good - Critical Care Critical Care Time: No Attestation: On 05/08/19, the high probability of a clinically significant, sudden or life threatening deterioration of the following system(s) required my full and direct attention, intervention and personal management. The time I documented below is in addition to time spent performing reported procedures but includes the following listed in this critical care notation. Medical Decision Making - Medical Records Medical records reviewed: Yes: I reviewed the patient's medical records. - Jose Inquiry Pt receiving controlled substance: No Vital Signs: 05/08/19 10:55 05/08/19 11:38 Temperature 98.1 F Temperature Source Oral Pulse Rate [Right Radial] 90 85 Respiratory Rate 18 Blood Pressure [Right Arm] 145/103 H 148/114 H Blood Pressure Mean [Right Arm] 117 125 Blood Pressure Source [Right Arm] Automatic Cuff Automatic Cuff Blood Pressure Position [Right Arm] Sitting Sitting 02 Sat by Pulse Oximetry 95 95 Oxygen Delivery Method Room Air Room Air - Lab Data Lab results reviewed: Yes: I reviewed the patient's lab results. Lab Results 05/08/19 11:20: WBC 5.2, RBC 4.89, Hgb 15.1, Hct 44.9, MCV 91.8, MCH 30.9, MCHC 33.6, RDW 13.8, Plt Count 309, MPV 7.9, Neut % (Auto) 67.0, Lymph % (Auto) 21.5, [place] % (Auto) 7.5, Eos % (Auto) 2.5, Baso % (Auto) 1.5, Neut # (Auto) 3.5, Lymph # (Auto) 1.1, [place] # (Auto) 0.4, Eos # (Auto) 0.1, Baso # (Auto) 0.1 05/08/19 11:20: Sodium 137, Potassium 3.7, Chloride 103, Carbon Dioxide 27, Anion Gap 10.7, BUN 7, Creatinine 1.19, Estimated Creat Clear 68, Estimated GFR 64, Est GFR ( Amer) 77, Glucose 116 H, Calcium 9.2, Total Bilirubin 0.3, AST 31, ALT 69, Alkaline Phosphatase 98, Troponin I < 0.02, Total Protein 7.8, Albumin 3.8, Globulin 4.0 H, Albumin/Globulin Ratio 1.0 L 05/08/19 11:20: Lactate 0.8 05/08/19 12:44: Urine Color Yellow, Urine Appearance Clear, Urine pH 7.0, Ur Specific [place] 1.010, Urine Protein Negative, Urine Glucose (UA) Negative, Urine Ketones Negative, Urine Blood Negative, Urine Nitrate Negative, Urine Bilirubin Negative, Urine Urobilinogen 0.2, Ur Leukocyte Esterase Negative, Urine RBC None, Urine WBC Occasional, Ur Squamous Epith Cells Occasional, Urine Bacteria None Result diagrams: 05/08/19 11:20 05/08/19 11:20 Orders (Tests/Meds): ORDERS Category Date Time Status Troponin I Q3H Lab 05/08/19 14:15 Ordered Troponin I Q3H Lab 05/08/19 17:15 Ordered Blood Culture Stat Micro 05/08/19 11:20 Received - Radiology Data #1 Image(s): Chest, Shoulder Image Reviewed: Yes I reviewed the patient's radiology image Preliminary Findings: No Fracture Seen - CT Data CT Scan: Head Time Received: 13:[address] Reviewed: Yes: I have viewed the radiologist's interpretation Preliminary Findings: Abnormal (sinus disease ) - ECG Data Tracing #1 Normal Sinus Rhythm: Yes Ischemic changes: non-specific ST-T wave changes - Physician Consults Physician Consulted: frederick Reason -: Admission - CATRACHITO Score for Non-Stemi Age of Patient: 50-59 years old Heart Rate: 90-109 bpm Systolic Blood Pressure: 140-159 mmHg Serum Creatinine: 0.80-1.19 mg/dl CHF [place] Class: I-No CHF Other Risk Factors: None Non-Stemi Risk Score: 87 Dizzy HPI - General Chief Complaint: Dizziness Stated Complaint: left arm pain, shoulder pain,dizzy, no accident Time Seen by Provider: 05/08/19 11:15 Mode of Arrival: Ambulatory Source of Information: Patient, Spouse, Medical Record Limitations: No Limitations Description of Symptoms (Recalled from ER Triage Doc. by RN): PT C/O ELEVATED BP, DIZZINESS, SOA AND LT SHOULDER PAIN THAT HAS PROGRESSIVELY GOTTEN WORSE OVER THE LAST COUPLE DAYS. STATES THEY HAVE EACH BEEN ILL WITH A RESPIRATORY VIRUS. - History of Present Illness HPI Narrative: over the last few days has increased bp and episodes of diazzyness and lt neck and upper ext pain - no known card dis and has pos hx of card dis - no tob MD complaint: dizziness Onset (ago): day(s) Timing: sudden onset Description: lightheadedness History of similar episodes: No History of trauma: No Severity: moderate Associated symptoms: denies other symptoms - Related Data Home Medications Medication Instructions Recorded Confirmed ergocalciferol (vitamin D2) 50,000 50,000 unit PO cap 02/27/19 05/07/19 unit capsule aspirin 81 mg tablet,delayed 81 mg PO DAILY 04/09/19 05/07/19 release Previous Rx's Medication Instructions Recorded ibuprofen 800 mg tablet 800 mg PO BID #60 tab 02/04/19 Allergies Allergy/AdvReac Type Severity Reaction Status Date / Time No Known Allergies Allergy Verified 05/07/19 08:10 [facility] History - Hepatitis A Screen Drug use history?: No High risk sexual behaviors?: No History of sexually transmitted infection?: No Currently employed?: No Childcare worker?: No Do you have indoor plumbing?: Yes Do you have electricity?: Yes Attestation statement:: This patient has been screened for Hepatitis A risk factors. I have reviewed the patient's past medical history: Yes Medical History: Reports:: Osteoporosis Denies:: Cancer, Diabetes Mellitus Type 1, Diabetes Mellitus Type 2, Internal Pacemaker, MRSA, Seizures Other Medical History: Reports: Osteoporosis, Other. Denies: Blood Transfusion Reaction Laterality Cases: Right: Other Other Surgeries: Yes: No Previous Surgery, Other (Right ankle replacement January 2019). No: Pacemaker Amputation: No Fractures: Yes Comment: Right Foot surgery 2009. Right Ankle Hardware removal 2018 - Social History Smoking Status: Never smoker Tobacco Type: cigarettes # Packs/Day (cigarettes): 1 Alcohol Intake: never Alcohol Intake Frequency:: holidays/special occasions only Substance Use Type: denies use Occupational Status: employed Housing: house Household Members: spouse Family Hx:: Diabetes, Stroke, Heart Attack, Hyperlipidemia, Hypertension ROS Obtained: Yes All systems reviewed & no additional complaints - Constitutional Constitutional: Denies fever(s) - Eyes Eyes: Denies change in vision - ENT Ears, Nose, Mouth, and Throat: Denies sore throat - Cardiovascular Cardiovascular: Denies chest pain, Reports dyspnea, Reports lightheadedness, Reports radiating jaw, neck or arm pain - Respiratory Respiratory: No cough - Gastrointestinal Gastrointestingal: Denies: abdominal pain - Genitourinary Male Genitourinary: Denies hematuria - Musculoskeletal Musculoskeletal: Denies joint pain, Denies limited range of motion - Integumentary/Breasts Skin/Breast: Denies rash - Neurologic Neurologic: Denies abnormal speech, Denies convulsions, Denies focal weakness, Denies headache(s), Denies tingling/numbness/burning sensations Physical Exam - General General appearance: alert - Head Head exam: normocephalic - Eye Eye exam: Present: PERRL, EOMI. Absent: scleral icterus, nystagmus - ENT ENT exam: Present: mucous membranes moist - Neck Neck exam: Present: trachea midline, other (no bruit ) - Respiratory Respiratory exam: Present: normal lung sounds bilaterally. Absent: respiratory distress - Cardiovascular Cardiovascular exam: Present: regular rate, systolic murmur - Abdominal Exam Abdominal exam: Present: soft - Extremities Exam Extremities exam: Present: full ROM. Absent: calf tenderness - Neurological Exam Neurological exam: Present: alert, oriented X3, CN II-XII intact - Psychiatric Psychiatric exam: Present: normal affect - Skin Skin exam: Absent: rash
[2019-05-08 12:47] LABS: Appearance,Urine CLEAR (Clear); Bilirubin,Urine Negative (Negative); Blood, Urine Negative (Negative); Color,Urine YELLOW (Yellow); Glucose,Urine (UA) Negative (Negative); Ketones,Urine Negative (Negative); Leukocyte Esterase,Urine Negative (Negative); Microscopic, Urine URINE MICROSCOPIC (MICROSCOPIC); Protein,Urine Negative (Negative); Urobilinogen,Urine 0.2 EU/dl (0.2)
[2019-05-08 12:56] LABS: Squamous Epithelial Cell,Urine Occasional #/hpf (0-5); WBC,Urine Occasional #/hpf (0-3)
--- NOTE | 2019-05-08 14:13 | Pharmacy Consult Notes ---
[facility] Pharmacy VTE Monitoring - Patient Demographics Admission date: 05/08/19 Report Date: 05/08/19 Time: 14:13 Allergies/Adverse Reactions: Patient Allergies No Known Allergies Allergy (Verified 05/07/19 08:10) Height: 1.65 m Weight: 68.039 kg Patient Problems: Current Active Problems Hypertensive emergency (Acute) Dizziness (Acute) Sinusitis (Acute) - VTE Risk Labs: VTE Related Lab Results Hgb 15.1 g/dL (14.1-18.0) 05/08/19 11:20 Hct 44.9 % (42.0-52.0) 05/08/19 11:20 Plt Count 309 K/mm3 (142-424) 05/08/19 11:20 BUN 7 mg/dL (7-18) 05/08/19 11:20 Creatinine 1.19 mg/dL (0.70-1.30) 05/08/19 11:20 Estimated Creat Clear 68 mL/min (50-200) 05/08/19 11:20 - Prophylaxis VTE Prophylaxis Ordered?: Yes Types of VTE Prophylaxis: TEDS Knee High Location of Applied Device: Bilateral Lower Extremeties
--- NOTE | 2019-05-08 15:19 | History & Physical Report ---
*Admission Date: 05/08/19 *Chief complaint: Hypertension/atypical angina *History of present illness: 54-year-old male presented to the emergency department concerned he was "having a heart attack". Patient reports being in his normal state of health until the last 2 days when he was brought to his attention at an office visit with his paper sheeter that his blood pressure was elevated. Patient has no prior history of elevated blood pressure, including his hospitalizations at this facility in January and February of this year. On serial blood pressure evaluations over the last 48 hours patient has had repeated systolics in the 150s and diastolics of unknown degree. This morning when patient awoke he had a throbbing sensation in his left shoulder that went midway down the upper arm and also radiated up into the head and left side of the neck. He did not have any chest tightness or chest pain. He does admit to some shortness of breath during the episode but no diaphoresis. This raise concern about myocardial infarction and he came to the ER. Patient has no known risk factors for coronary artery disease other than a family history. His father has known vascular disease diagnosed when his father when is in his 60s. His father was a smoker. Initial evaluation in the emergency department was unremarkable. Patient has been admitted for serial EKG and enzymes. Echocardiogram has already been performed and has shown some mild mitral regurgitation as well as aortic insufficiency. Patient has not had any other prior cardiac work-up except for a Holter monitor he wore while in the [employer] in the early . He was told he had a "runners heart". Patient has lead an active lifestyle serving in the for nearly 30 years and was an avid runner prior to recent surgery, right ankle replacement. [facility] History I have reviewed the patient's past medical history: Yes Medical History: Reports:: Osteoporosis Denies:: Cancer, Diabetes Mellitus Type 1, Diabetes Mellitus Type 2, Internal Pacemaker, MRSA, Seizures *Have you ever received a pneumonia vaccine?: No *Have you received a flu vaccine this season?: No Other Medical History: Reports: Osteoporosis, Other. Denies: Blood Transfusion Reaction Laterality Cases: Right: Other Other Surgeries: Yes: No Previous Surgery, Other (Right ankle replacement January 2019). No: Pacemaker Amputation: No Fractures: Yes - *Social History Smoking Status: Never smoker Tobacco Type: cigarettes # Packs/Day (cigarettes): 1 Alcohol Intake: never Alcohol Intake Frequency:: holidays/special occasions only Substance Use Type: denies use *Occupational Status:: employed Housing: house Household Members: spouse *Travel in the last 8 weeks: None Comment: Patient served in the [employer] for nearly 30 years. 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 [place] Family Hx:: Coronary Artery Disease, Diabetes, Hyperlipidemia, Hypertension Review of Systems - Constitutional Denies body ache(s), Denies chills, Denies fever(s), Denies headache(s), Denies night sweats, Denies weakness - ENT Denies abnormal hearing - *Cardiovascular Reports radiating jaw, neck or arm pain, Denies chest pain, Denies chest pain at rest, Denies chest pain with activity, Denies irregular heart rhythm, Denies rapid, pounding, or irregular heartbeat, Denies foot swelling, Denies fast heart rate - *Respiratory Denies change in phlegm color, Denies chest congestion, Denies cough, Denies shortness of breath - *Gastrointestinal Denies belching - *Genitourinary Denies difficulty urinating - *Musculoskeletal Reports abnormal walking - *Neurologic Denies abnormal speech, Denies seizure-like activity, Denies localized weakness, Denies headache(s), Denies tingling/numbness/burning sensations Meds Home Medications Medication Instructions Recorded Confirmed Type ibuprofen 800 mg tablet 800 mg PO BID #60 tab 02/04/19 05/07/19 Rx ergocalciferol (vitamin D2) 50,000 50,000 unit PO cap 02/27/19 05/07/19 History unit capsule aspirin 81 mg tablet,delayed 81 mg PO DAILY 04/09/19 05/07/19 History release Allergies Allergy/AdvReac Type Severity Reaction Status Date / Time No Known Allergies Allergy Verified 05/07/19 08:10 Exam Vital signs and Labs for Last 24 Hours: Temp Pulse Resp BP Pulse Ox 98.6 F 86 17 152/96 H 98 05/08/19 14:03 05/08/19 14:03 05/08/19 14:03 05/08/19 14:03 05/08/19 13:53 Laboratory Results - last 24 hr 05/08/19 11:20: WBC 5.2, RBC 4.89, Hgb 15.1, Hct 44.9, MCV 91.8, MCH 30.9, MCHC 33.6, RDW 13.8, Plt Count 309, MPV 7.9, Neut % (Auto) 67.0, Lymph % (Auto) 21.5, [place] % (Auto) 7.5, Eos % (Auto) 2.5, Baso % (Auto) 1.5, Neut # (Auto) 3.5, Lymph # (Auto) 1.1, [place] # (Auto) 0.4, Eos # (Auto) 0.1, Baso # (Auto) 0.1 05/08/19 11:20: Sodium 137, Potassium 3.7, Chloride 103, Carbon Dioxide 27, Anion Gap 10.7, BUN 7, Creatinine 1.19, Estimated Creat Clear 68, Estimated GFR 64, Est GFR ( Amer) 77, Glucose 116 H, Calcium 9.2, Total Bilirubin 0.3, AST 31, ALT 69, Alkaline Phosphatase 98, Troponin I < 0.02, Total Protein 7.8, Albumin 3.8, Globulin 4.0 H, Albumin/Globulin Ratio 1.0 L 05/08/19 11:20: Lactate 0.8 05/08/19 12:44: Urine Color Yellow, Urine Appearance Clear, Urine pH 7.0, Ur Specific [place] 1.010, Urine Protein Negative, Urine Glucose (UA) Negative, Urine Ketones Negative, Urine Blood Negative, Urine Nitrate Negative, Urine Bilirubin Negative, Urine Urobilinogen 0.2, Ur Leukocyte Esterase Negative, Urine RBC None, Urine WBC Occasional, Ur Squamous Epith Cells Occasional, Urine Bacteria None I & O for Last 24 hours: Intake & Output 05/06/19 05/07/19 05/08/19 05/09/19 11:59 11:59 11:59 11:59 Weight 150 lb - *Routine HEENT Exam Head: Present: normocephalic Eye: Present: EOMI, PERRL ENT: Present: mucous membranes moist - *Routine Neck Exam Present: supple. Absent: lymphadenopathy - *Routine Respiratory Exam Present: CTA bilaterally - *Routine Cardiovascular Exam Present: RRR - *Routine Abdominal Exam Present: soft, normoactive bowel sounds. Absent: tenderness - *Routine Extremities Exam Absent: cyanosis, clubbing, edema - *Routine Skin Exam Present: warm. Absent: rash - *Routine Neurological Exam Present: alert, oriented X3 - Detailed Eye Exam Eyelids: Left normal inspection Assessment and Plan (1) Malignant hypertension Current visit: Yes Status: Acute Category: Medical Code(s): I10 - Essential (primary) hypertension (2) Atypical angina Current visit: Yes Status: Acute Category: Medical Code(s): I20.8 - Other forms of angina pectoris - Assessment and plan all Dx Assessment and Plan for all problems:: Patient blood pressures improved while in the emergency department although diastolics and systolics both remain elevated. Patient is currently asymptomatic. I have ordered a dose of hydrochlorothiazide 25 mg this evening give the patient for his hypertension and he will be monitored for further symptoms. Echocardiogram on preliminary read shows a normal ejection fraction. I will go on and place an order for a Lexiscan stress test in the morning as I am not sure the patient could achieve adequate heart rate on a treadmill stress test due to his recent right ankle replacement surgery. Cardiology has also been consulted
--- NOTE | 2019-05-08 16:15 | Consult Report ---
History of Present Illness Consult date: 05/08/19 Requesting physician: Brooks Rodríguez Consult reason: chest pain, hypertension Chief complaint: Dizziness, chest pain and hypertension History of present illness: This is a 54-year-old white gentleman who presented to the emergency department with complaints of chest pain. The patient states that about 2 days ago after seeing his lathe hand he started feeling bad. He states that when he did see his lathe hand his blood pressure was a little bit elevated. He reports that he had some nasal congestion so he was taking an [id number] decongestant and Flonase and attributed his high blood pressure to that. He states that yesterday he started having more dizziness and feeling lightheaded. He states that he has been having an aching pain in the left side of his chest that radiates up to his neck and down about midway to his left shoulder. He states that he is short of breath and dizzy with his symptoms. The patient was concerned that he might be having a heart attack. His symptoms worsened today and he decided to come into the emergency department. The patient's blood pressure was elevated while in the emergency department. He has had 2- troponins. He reports that his father and his paternal uncles all had MIs, coronary artery disease and open heart surgery. He denies any personal history of tobacco use. He denies any fever, chills, nausea, vomiting, diarrhea, PND or orthopnea. [facility] History I have reviewed the patient's past medical history: Yes Medical History: Reports:: Osteoporosis Denies:: Cancer, Diabetes Mellitus Type 1, Diabetes Mellitus Type 2, Internal Pacemaker, MRSA, Seizures *Have you ever received a pneumonia vaccine?: No *Have you received a flu vaccine this season?: No Other Medical History: Reports: Osteoporosis, Other. Denies: Blood Transfusion Reaction Laterality Cases: Right: Other Other Surgeries: Yes: No Previous Surgery, Other (LEFT ANKLE SURGERY). No: Pacemaker Amputation: No Fractures: Yes - *Social History Smoking Status: Never smoker Tobacco Type: cigarettes # Packs/Day (cigarettes): 1 Alcohol Intake: current Alcohol Intake Frequency:: holidays/special occasions only Substance Use Type: denies use *Occupational Status:: employed Housing: house Household Members: spouse *Travel in the last 8 weeks: None Family Hx:: Coronary Artery Disease, Diabetes, Hyperlipidemia, Hypertension Meds Home Medications Medication Instructions Recorded Confirmed Type ibuprofen 800 mg tablet 800 mg PO BID #60 tab 02/04/19 05/07/19 Rx ergocalciferol (vitamin D2) 50,000 50,000 unit PO cap 02/27/19 05/07/19 History unit capsule aspirin 81 mg tablet,delayed 81 mg PO DAILY 04/09/19 05/07/19 History release Allergies Allergy/AdvReac Type Severity Reaction Status Date / Time No Known Allergies Allergy Verified 05/07/19 08:10 Review of Systems - Review of Systems Review of systems:: pertinent systems reviewed and negative unless documented below - *Cardiovascular Reports chest pain, Reports chest pain at rest, Reports chest pain with activity, Reports shortness of breath, Reports shortness of breath with activity - *Respiratory Reports shortness of breath, Reports shortness of breath with activity - *Neurologic Reports abnormal walking, Reports dizziness, Denies abnormal hearing, Denies abnormal speech, Denies seizure-like activity, Denies localized weakness, Denies headache(s), Denies tingling/numbness/burning sensations, Denies weakness Exam Vital signs and Labs for Last 24 Hours: Temp Pulse Resp BP Pulse Ox 98.3 F 87 17 142/105 H 98 05/08/19 15:21 05/08/19 15:21 05/08/19 15:21 05/08/19 15:21 05/08/19 15:21 Laboratory Results - last 24 hr 05/08/19 11:20: WBC 5.2, RBC 4.89, Hgb 15.1, Hct 44.9, MCV 91.8, MCH 30.9, MCHC 33.6, RDW 13.8, Plt Count 309, MPV 7.9, Neut % (Auto) 67.0, Lymph % (Auto) 21.5, [place] % (Auto) 7.5, Eos % (Auto) 2.5, Baso % (Auto) 1.5, Neut # (Auto) 3.5, Lymph # (Auto) 1.1, [place] # (Auto) 0.4, Eos # (Auto) 0.1, Baso # (Auto) 0.1 05/08/19 11:20: Sodium 137, Potassium 3.7, Chloride 103, Carbon Dioxide 27, Anion Gap 10.7, BUN 7, Creatinine 1.19, Estimated Creat Clear 68, Estimated GFR 64, Est GFR ( Amer) 77, Glucose 116 H, Calcium 9.2, Total Bilirubin 0.3, AST 31, ALT 69, Alkaline Phosphatase 98, Troponin I < 0.02, Total Protein 7.8, Albumin 3.8, Globulin 4.0 H, Albumin/Globulin Ratio 1.0 L 05/08/19 11:20: Lactate 0.8 05/08/19 12:44: Urine Color Yellow, Urine Appearance Clear, Urine pH 7.0, Ur Specific [place] 1.010, Urine Protein Negative, Urine Glucose (UA) Negative, Urine Ketones Negative, Urine Blood Negative, Urine Nitrate Negative, Urine Bilirubin Negative, Urine Urobilinogen 0.2, Ur Leukocyte Esterase Negative, Urine RBC None, Urine WBC Occasional, Ur Squamous Epith Cells Occasional, Urine Bacteria None 05/08/19 15:17: Troponin I < 0.02 I & O for Last 24 hours: Intake & Output 05/05/19 05/06/19 05/07/19 05/08/19 23:59 23:59 23:59 23:59 Weight 139 lb 3 oz Narrative: EKG is sinus rhythm with left anterior hemiblock and poor R wave progression. Rate is 80. - Constitutional no acute distress, average body habitus - *Routine HEENT Exam Head: Present: normocephalic, atraumatic Eye: Present: EOMI, PERRL ENT: Present: mucous membranes moist - *Routine Neck Exam Present: supple, full ROM, normal carotid upstroke. Absent: JVD, carotid bruit, lymphadenopathy - *Routine Respiratory Exam Present: CTA bilaterally - *Routine Cardiovascular Exam Present: RRR, Normal S1, Normal S2. Absent: murmur, gallop - *Routine Abdominal Exam Present: soft, normoactive bowel sounds. Absent: tenderness, distended - *Routine Extremities Exam Present: full ROM, pulses intact, normal capillary refill. Absent: cyanosis, clubbing, edema - *Routine Skin Exam Present: intact, warm. Absent: erythema, rash - *Routine Neurological Exam Present: alert, oriented X3, CN II-XII intact. Absent: sensory deficit, motor deficit - Routine Psychiatric Exam Present: normal affect, normal thought process - Detailed Eye Exam Eyelids: Left normal inspection Assessment and Plan (1) Malignant hypertension Current visit: Yes Status: Acute Category: Medical Code(s): I10 - Essential (primary) hypertension (2) Atypical angina Current visit: Yes Status: Acute Category: Medical Code(s): I20.8 - Other forms of angina pectoris (3) Shortness of breath Current visit: Yes Status: Acute Category: Medical Code(s): R06.02 - Shortness of breath (4) Family history of ischemic heart disease Current visit: Yes Status: Chronic Category: Medical Code(s): Z82.49 - Family history of ischemic heart disease and other diseases of the circulatory system - Assessment and plan all Dx Assessment and Plan for all problems:: Plan: 1. The patient was admitted to the hospital with chest pain, dizziness and hypertension. The patient states that the chest pain he was experiencing made him think he might be having a heart attack. He decided to come into the emergency department because of the chest pain. His initial 2 troponins are negative. He does have an abnormal EKG. He does have a family history of isc hemic heart disease. We will set the patient up for Lexiscan Myoview stress test to rule out ischemia. 2. His echocardiogram is currently pending. 3. The patient's blood pressure is elevated. He has been started on hydrochlorothiazide 25 mg p.o. daily. We will see if this improves his blood pressure. If not, consider adding a beta-brissa. 3. His LDL goal is less than 100. Lipid panel in the morning. 4. Further recognitions were made pending the patient's response to treatment and the results of his Lexiscan and echocardiogram. Thank you for the opportunity to help participate in the care of this patient.
--- NOTE | 2019-05-09 11:11 | Progress Note ---
Subjective Date: 05/09/19 Time: 10:46 Principal diagnosis: HTN Interval history: 54 yo WM seen in stress lab for stress test. No complaints and feeling better today. BP improved. Exam Vital signs and Labs for Last 24 Hours: Temp Pulse Resp BP Pulse Ox 97.9 F 94 H 18 124/86 97 05/09/19 04:00 05/09/19 04:00 05/09/19 04:00 05/09/19 04:00 05/09/19 04:00 Laboratory Results - last 24 hr 05/08/19 11:20: WBC 5.2, RBC 4.89, Hgb 15.1, Hct 44.9, MCV 91.8, MCH 30.9, MCHC 33.6, RDW 13.8, Plt Count 309, MPV 7.9, Neut % (Auto) 67.0, Lymph % (Auto) 21.5, [place] % (Auto) 7.5, Eos % (Auto) 2.5, Baso % (Auto) 1.5, Neut # (Auto) 3.5, Lymph # (Auto) 1.1, [place] # (Auto) 0.4, Eos # (Auto) 0.1, Baso # (Auto) 0.1 05/08/19 11:20: Sodium 137, Potassium 3.7, Chloride 103, Carbon Dioxide 27, Anion Gap 10.7, BUN 7, Creatinine 1.19, Estimated Creat Clear 68, Estimated GFR 64, Est GFR ( Amer) 77, Glucose 116 H, Calcium 9.2, Total Bilirubin 0.3, AST 31, ALT 69, Alkaline Phosphatase 98, Troponin I < 0.02, Total Protein 7.8, Albumin 3.8, Globulin 4.0 H, Albumin/Globulin Ratio 1.0 L 05/08/19 11:20: Lactate 0.8 05/08/19 12:44: Urine Color Yellow, Urine Appearance Clear, Urine pH 7.0, Ur Specific [place] 1.010, Urine Protein Negative, Urine Glucose (UA) Negative, Urine Ketones Negative, Urine Blood Negative, Urine Nitrate Negative, Urine Bilirubin Negative, Urine Urobilinogen 0.2, Ur Leukocyte Esterase Negative, Urine RBC None, Urine WBC Occasional, Ur Squamous Epith Cells Occasional, Urine Bacteria None 05/08/19 15:17: Troponin I < 0.02 05/08/19 17:06: Troponin I < 0.02 I & O for Last 24 hours: Intake & Output 05/06/19 05/07/19 05/08/19 05/09/19 11:59 11:59 11:59 11:59 Intake Total 360 / 360 Balance 360 / 360 Weight 150 lb 137 lb 2 oz - *Routine Neck Exam Present: supple. Absent: JVD, carotid bruit - *Routine Respiratory Exam Present: CTA bilaterally. Absent: accessory muscle use, rales, rhonchi, wheezes - *Routine Cardiovascular Exam Present: RRR. Absent: murmur, gallop, rubs - *Routine Abdominal Exam Present: soft. Absent: tenderness, distended, guarding - *Routine Extremities Exam Absent: edema, calf tenderness - *Routine Neurological Exam Present: alert, oriented X3, moving all extremities Progress Note: A&P (1) Malignant hypertension Status: Acute Current Visit: Yes (2) Atypical angina Status: Acute Current Visit: Yes (3) Shortness of breath Status: Acute Current Visit: Yes (4) Family history of ischemic heart disease Status: Chronic Current Visit: Yes Assessment and Plan for All Diagnoses:: 1. Continue HCTZ 2. Consider MALACHI or low dose beta brissa if BP rises again 3. Simon myoview is normal EF without ischemia. 4. OK for discharge home from cardiology standpoint. 5. Follow up in 2 wks
[2019-05-09 11:19] LABS: Basophils # 0.1 K/mm3 (0-0.2); Basophils % 1.2 % (0.1-2.0); Eosinophils # 0.2 K/mm3 (0.0-0.4); Eosinophils % 3.1 % (0.1-12.0); Hematocrit 51.4 % (42.0-52.0); Hemoglobin 16.6 g/dL (14.1-18.0); Lymphocytes # 1.1 K/mm3 (0.7-4.5); Lymphocytes % 19.4 % (10-50); Mean Corpuscular HGB Conc 32.3 g/dL (31.8-35.4); Mean Corpuscular Volume 93.4 fl (80-94); Mean Platelet Volume 8.1 fl (7.4-10.4); Monocytes # 0.4 K/mm3 (0.1-1.0); Monocytes % 6.3 % (1.7-9.3); Neutrophils # 4.1 K/mm3 (1.8-7.8); Neutrophils % 69.9 % (37.0-80.0); Platelet Count 300 K/mm3 (142-424); Red Cell Distribution Width 14.1 % (11.5-17.5); White Blood Count 5.9 K/mm3 (4.8-10.8)
[2019-05-09 11:31] LABS: Anion Gap 11.4 mEq/L (5-15); Chol/HDL Ratio 5.9 (1-3.5)
--- NOTE | 2019-05-09 14:28 | Cardiology Report ---
APPROVED REPORT Exam: Pharmacologic Technologist: neelam motley, Ht: 5 ft 5 in Wt: 150 lbs BSA: 1.75 m2 HR: 83 bpm BP: 122/81 mmHg Rhythm: NSR Indications: CP Medical History Medications: Asa,,,,, Ibuprofen,,,,, VitaminD2,,,,, Allergies: NKA Cardiac Risk Factors: FHX of CAD Stress Test Details Test: LEXISCAN HR Resting HR: 76 bpmMax Heart Rate (APMHR): 166 bpm Max HR Achieved: 114 bpmTarget HR (85% APMHR): 141 bpm % of APMHR: 68 Recovery HR: 77 bpm BP Resting BP: 122.0/81.0 mmHg Max BP: 123.0/74.0 mmHg Recovery BP: 119.0/76.0 mmHg ECG Resting ECG: NSR Clinical Reason for Termination: Completed Protocol Exercise duration: 07:08 min Highest Stage Achieved: Exercise capacity: 1.0 METs Stress ECG Conclusion DECREASED ALERTNESS-RESOLVED WITH HEAD DOWN AND FEET UP. NO CHEST PAIN. ATRIAL BIGEMINY. NO ST-T CHANGES. NON-DIAGNOSTIC. Electronically signed by : Kailash Livingston, 05/09/2019 14:27:55
--- NOTE | 2019-05-09 15:09 | Cardiology Report ---
APPROVED REPORT EXAM: Comprehensive 2D, Doppler, and color-flow Echocardiogram [employer]: Christie Alberto CRT Ht: 5 ft 5 in Wt: 150lbs BSA: 1.75 BP: 148/114 mmHg Indications: CP 2D Dimensions LVOT 1.93 cm (M/F) 1.5-2.5 M-Mode Dimensions RVDd 2.13 cm (0.9-2.6)LVDd 5.98 cm (3.5-5.7) LVDs 3.64 cm (3.5-5.7)IVSd 0.93 cm (0.6-1.1) PWd 0.73 cm (0.6-1.1)EF (Teich) 68.70% FS 39.10% EDV (Teich) 178.60 mL ESV (Teich) 55.90 mL LV Diastology E/A Ratio 0.46 Mitral Valve MV A Velocity 86.00 (40-130 cm/s) Left Ventricle Left atrium is mildly enlarged, left ventricle is normal size, there is mild concentric left ventricular hypertrophy, visually estimated ejection fraction 55% with no regional wall motion abnormality, grade 1 diastolic dysfunction seen without tissue Doppler evidence of raise left atrial pressure. Right Ventricle Right atrium and right ventricle are normal size and contractility. Aortic Valve Aortic root is enlarged, aortic valve is minimally thickened and fibrosed. There is no aortic stenosis, there is moderate aortic insufficiency. Mitral Valve Mitral valve is grossly normal, there is mild mitral regurgitation. Tricuspid Valve Tricuspid valve is grossly normal, there is mild tricuspid regurgitation. Pulmonic Valve Pulmonic valve is poorly visualized. Great Vessels Aortic root is mildly enlarged measuring 4.0 cm. Pericardium No significant pericardial effusion noted. Conclusion 1. Mildly enlarged left atrium, normal left ventricular size, mild concentric left ventricular hypertrophy, visually estimated ejection fraction 55% with no regional wall motion abnormality, grade 1 diastolic dysfunction seen without tissue Doppler evidence of raise left atrial pressure. 2. Mildly enlarged aortic root measuring 4.0 cm, there is no aortic stenosis, there is moderate aortic insufficiency. 3. Mild mitral and tricuspid regurgitation. 4. No significant pericardial effusion noted. Electronically signed by : Kailash Livingston, 05/09/2019 15:09:03
--- NOTE | 2019-05-09 17:11 | Discharge Summary ---
General - General Admission date:: 05/08/19 Discharge date: 05/09/19 HPI HPI: 54-year-old male presented to the emergency department concerned he was "having a heart attack". 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 Patient has no prior history of elevated blood pressure, including his hospitalizations at this facility in January and February of this year. On serial blood pressure evaluations over the last 48 hours patient has had repeated systolics in the 150s and diastolics of unknown degree. This morning when patient awoke he had a throbbing sensation in his left shoulder that went midway down the upper arm and also radiated up into the head and left side of the neck. He did not have any chest tightness or chest pain. He does admit to some shortness of breath during the episode but no diaphoresis. This raise concern about myocardial infarction and he came to the ER. Patient has no known risk factors for coronary artery disease other than a family history. His father has known vascular disease diagnosed when his father when is in his 60s. His father was a smoker. Initial evaluation in the emergency department was unremarkable. Patient has been admitted for serial EKG and enzymes. Echocardiogram has already been performed and has shown some mild mitral regurgitation as well as aortic insufficiency. Patient has not had any other prior cardiac work-up except for a Holter monitor he wore while in the [employer] in the early . He was told he had a "runners heart". Patient has lead an active lifestyle serving in the for nearly 30 years and was an avid runner prior to recent surgery, right ankle replacement. Hospital Course Hospital Course: Patient was admitted and ruled out for DE. On May 09 he underwent Lexiscan Myoview stress test which was negative for ischemia. Echocardiogram showed normal LV function. Patient had been placed on hydrochlorothiazide 25 mg which improved his blood pressure. He will continue hydrochlorothiazide 25 mg daily at discharge. Patient was discharged home after his negative stress test. He will follow-up in my office early next week Objective Vital signs: Temp Pulse Resp BP Pulse Ox 98.2 F 86 17 137/101 H 98 05/09/19 12:00 05/09/19 12:00 05/09/19 12:00 05/09/19 12:00 05/09/19 12:00 no acute distress - *Routine Respiratory Exam Present: CTA bilaterally - *Routine Cardiovascular Exam Present: RRR, Normal S1, Normal S2 Results Labs on day of discharge: Labs from last 24 hours 05/09/19 05/09/19 05/08/19 11:05 11:05 17:06 WBC 5.9 RBC 5.50 Hgb 16.6 Hct 51.4 MCV 93.4 MCH 30.2 MCHC 32.3 RDW 14.1 Plt Count 300 MPV 8.1 Neut % (Auto) 69.9 Lymph % (Auto) 19.4 [place] % (Auto) 6.3 Eos % (Auto) 3.1 Baso % (Auto) 1.2 Neut # (Auto) 4.1 Lymph # (Auto) 1.1 [place] # (Auto) 0.4 Eos # (Auto) 0.2 Baso # (Auto) 0.1 Sodium 135 L Potassium 4.4 Chloride 100 Carbon Dioxide 28 Anion Gap 11.4 BUN 12 D Creatinine 1.22 Estimated Creat Clear 61 Estimated GFR 62 Est GFR ( Amer) 75 Glucose 109 H Magnesium 2.2 Troponin I < 0.02 Triglycerides 151 Cholesterol 273 H LDL Cholesterol 197 H VLDL Cholesterol 30 HDL Cholesterol 46 Cholesterol/HDL Ratio 5.9 H DS: Diagnosis - Discharge Diagnosis (1) Malignant hypertension Status: Acute (2) Atypical angina Status: Acute (3) Shortness of breath Status: Acute (4) Family history of ischemic heart disease Status: Chronic Discharge Plan - Patient Discharge Instructions ACTIVITY: Continue current activity DIET: continue same diet Patient Instructions: DI for Angina, DI for High Blood Pressure - Follow up Plan Follow up with: Sebastián Amin MD [Staff Physician] - Disposition: Home, Self-[facility] Medications: Home Medications Medication Instructions Recorded Confirmed Type ibuprofen 800 mg tablet 800 mg PO BID #60 tab 02/04/19 05/09/19 Rx ergocalciferol (vitamin D2) 50,000 100,000 unit PO WEEKLY cap 02/27/19 05/09/19 History unit capsule aspirin 81 mg tablet,delayed 81 mg PO DAILY 04/09/19 05/09/19 History release hydroCHLOROthiazide [HCTZ 25mg 25 mg PO DAILY #30 tab 05/09/19 Rx tab] Prescriptions/Medication Reconciliation: New hydroCHLOROthiazide [HCTZ 25mg tab] 25 mg PO DAILY #30 tab Continued ibuprofen 800 mg tablet 800 mg PO BID #60 tab ergocalciferol (vitamin D2) 50,000 unit capsule 100,000 unit PO WEEKLY cap aspirin 81 mg tablet,delayed release 81 mg PO DAILY - Problem Reconciliation Problems Reviewed?: Yes
[2019-05-09 17:22] LABS: Calcium 10.3 mg/dL (8.5-10.1)
--- NOTE | 2019-05-10 08:13 | Electrocardiograph Report ---
APPROVED REPORT Exam: Resting ECG HR:80 bpm ECG Measurements Heart Rate 80 AXES OK 180 P 45 QRSd 102 QRS -46 QT 380 T25 QTc 438 <Conclusion> Normal sinus rhythm with sinus arrhythmia Left anterior fascicular block Late R-wave progression, unchanged from prior Abnormal ECG Electronically signed by : Sebastián Klein, 05/10/2019 08:13:14
== END 2019-05-09 16:30 | disposition home or self-care (01) ==
LOC: 2ND 10:37 → ER 10:37 → 2ND 14:04
PROVIDERS: ADMIT Family Medicine; ATTEND Family Medicine
CPT/HCPCS: 36415; 70450; 71020; 71046; 73030; 78452; 80048; 80053; 80061; 81001; 83605; 83735; 84484; 85025; 87040; 93005; 93017; 93306; 99285; A9502; G0378; J2785

== ENCOUNTER → 2019-09-04 13:42 | Outpatient (CLI) | payer BC, SELFPAY | PROVIDERS: PCP Family Medicine; Visit Provider Internal Medicine | DX: R00.1 Bradycardia, unspecified (principal); R94.31 Abnormal electrocardiogram [ECG] [EKG]; E78.5 Hyperlipidemia, unspecified; Z82.49 Family history of ischemic heart disease and other diseases of the circulatory system; Z87.891 Personal history of nicotine dependence | CPT/HCPCS: 93270 ==

== ENCOUNTER → 2019-09-10 10:05 | Outpatient (CLI) | payer BC, SELFPAY ==
--- NOTE | 2019-09-10 10:08 | XR_ITS ---
PROCEDURE: XR KUB CLINICAL INDICATION: kidney stone The COMPARISON: CT ABDOMEN PELVIS WO CON from 09/01/2019 FINDINGS: There are at least 3 small stones in the mid aspect of the right kidney the largest of which measures approximately 3 mm. Nonspecific nonobstructive bowel gas pattern. Bowel gas obscures the left kidney. Previous CT scan demonstrated a right mid ureteral stone not readily apparent. There are mild degenerative changes in the hips. IMPRESSION: Right nephrolithiasis Dictated by: Jitendra Lockwood MD 09/10/2019 13:00 Electronically signed by Jitendra Lockwood MD in [place] 09/10/2019 13:00
== END ==
PROVIDERS: PCP Family Medicine; Visit Provider Urology
DX: N20.0 Calculus of kidney (principal)
CPT/HCPCS: 74018

== ENCOUNTER → 2020-01-01 14:40 | Outpatient (CLI) | payer BC, SELFPAY ==
[2020-01-01 15:43] LABS: Alanine Aminotransferase 85 U/L (12-78); Albumin Level 4.3 g/dl (3.5-5.0); Alkaline Phosphatase 77 U/L (38-126); Aspartate Amino Transferase 48 U/L (17-59); Bilirubin,Direct 0.1 mg/dl (0.0-0.4); Bilirubin,Indirect 0.5 mg/dL (0.0-0.9); Bilirubin,Total 0.6 mg/dl (0.2-1.3); Bilirubin,Unconjugated 0.6 mg/dL (0.0-1.1); Chol/HDL Ratio 3.3 (1-3.5); Cholesterol 192 mg/dl (140-200); HDL Cholesterol 58 mg/dl (40-60); Total Protein,Serum 6.9 g/dl (6.3-8.2); Triglycerides 56 mg/dl (30-150); VLDL Cholesterol 11 mg/dL (0-40)
[2020-01-01 15:54] LABS: Direct LDL Cholesterol 125.17 mg/dL (100-129)
== END ==
PROVIDERS: Visit Provider Urology
DX: E78.5 Hyperlipidemia, unspecified (principal); I35.1 Nonrheumatic aortic (valve) insufficiency; I77.810 Thoracic aortic ectasia; R00.1 Bradycardia, unspecified; R94.31 Abnormal electrocardiogram [ECG] [EKG]; Z82.49 Family history of ischemic heart disease and other diseases of the circulatory system; Z87.891 Personal history of nicotine dependence
CPT/HCPCS: 36415; 80061; 80076

== ENCOUNTER → 2020-02-25 10:18 | Outpatient (CLI) | payer BC, SELFPAY ==
--- NOTE | 2020-02-25 10:22 | XR_ITS ---
PROCEDURE: XR ANKLE WT BEARING RT MIN 3V CLINICAL INDICATION: postop views Follow-up ankle replacement COMPARISON: CR [id number] XR ankle wt bearing RT min 3V from 10/10/2018 CR XR ANKLE RT MIN 3V from 02/13/2019 CR XR ANKLE RT 2V from 02/13/2019 FINDINGS: Status post ankle arthroplasty. The prostatic device at the distal tibia and at the talar dome remain in place in good alignment. No evidence of postoperative complications. There are some hypertrophic changes at the distal tibial fibular syndesmosis and there is some nonspecific lucency of the distal shaft of the fibula and in the mid to distal shaft of the tibia possibly postsurgical IMPRESSION: Good alignment status post ankle arthroplasty Dictated by: Jitendra Lockwood MD 02/25/2020 11:40 Jitendra Lockwood MD in [place] 02/25/2020 11:40
== END ==
PROVIDERS: PCP Family Medicine; Visit Provider Podiatrist
DX: Z98.890 Other specified postprocedural states (principal); M25.571 Pain in right ankle and joints of right foot
CPT/HCPCS: 73610

== ENCOUNTER → 2020-07-24 12:51 | Outpatient (CLI) | payer BC, SELFPAY ==
--- NOTE | 2020-07-24 12:52 | CA_ITS ---
APPROVED REPORT EXAM: Comprehensive 2D, Doppler, and color-flow Echocardiogram Supervisor Rose Grading: Patty Moreno RT(R) Ht: 5 ft 5 in Wt: 153lbs BSA: 1.77 BP: 125/89 mmHg Indications: SOB, murmur, DD, hyperlipidemia 2D Dimensions LVOT 2.02 cm (M/F) 1.5-2.5 LVEF (Mckeon's) 64.60 % M: 52 - 72 LV Volume 90.70 mL M: 62 - 150 LV Volume Index 51.53 mL/m2 M: 34 - 74 M-Mode Dimensions RVDd 3.00 cm (0.9-2.6) LA Diam 2.94 cm (1.9-4.0) LVDd 4.67 cm (3.5-5.7) Ao Diam 3.44 cm (2.0-3.7) LVDs 3.18 cm (3.5-5.7) IVSd 1.11 cm (0.6-1.1) PWd 0.78 cm (0.6-1.1) EF (Teich) 60.00% FS 31.90% EDV (Teich) 100.80 mL ESV (Teich) 40.30 mL LV Diastology E Decel Time 263.00 (160-240 msec) E/A Ratio 0.8 MED E' 7.10 (< 7 cm/sec) E'/MED E' Ratio 9.55 (>14) LAT E' 9.00 (<10 cm/sec) E/LAT E' Ratio 7.53 (>14) Aortic Valve AI PHT 1268.00 ms Mitral Valve MV E Max Jadiel. 68.00 (40-130 cm/s) MV A Velocity 88.00 (40-130 cm/s) E/A Ratio 0.77 MV Decel. Time 263.00 (160-240 ms) MV PHT 77.00 ms Left Ventricle Left atrium is mildly enlarged, left ventricle is normal size, mild concentric left ventricular hypertrophy, visually estimated ejection fraction 55% with no regional wall motion abnormality. Grade 1 diastolic dysfunction seen without tissue Doppler evidence of raise left atrial pressure. Right Ventricle Right atrium and right ventricle are mildly enlarged with normal contractility. Aortic Valve Aortic valve is thickened and calcified, appears to be trileaflet aortic valve, there is no aortic stenosis, there is moderate aortic insufficiency. Mitral Valve Mitral valve is grossly normal, there is mild mitral regurgitation. Tricuspid Valve Tricuspid valve grossly normal, there is trace tricuspid regurgitation, tricuspid regurgitation jet velocity is inadequate for calculation of the right ventricular systolic pressure. Pulmonic Valve Pulmonic valve is poorly visualized. Great Vessels Aortic root is normal size. Pericardium No significant pericardial effusion noted. Conclusion 1. Mildly enlarged left atrium, normal left ventricular size, mild concentric left ventricular hypertrophy, visually estimated ejection fraction 55% with no regional wall motion abnormality, grade 1 diastolic dysfunction seen without tissue Doppler evidence of raise left atrial pressure. 2. Mildly enlarged right ventricle with normal contractility. 3. Thickened and calcified aortic valve without aortic stenosis, there is moderate aortic insufficiency. 4. Mild mitral and trace tricuspid regurgitation. 5. No significant pericardial effusion noted. Electronically signed by : Kailash Livingston, 07/24/2020 14:35:12
== END ==
PROVIDERS: PCP Family Medicine; Visit Provider Urology
DX: I77.810 Thoracic aortic ectasia (principal); E78.2 Mixed hyperlipidemia; I35.1 Nonrheumatic aortic (valve) insufficiency
CPT/HCPCS: 93306

== ENCOUNTER 2021-04-16 15:48 | Emergency (ER) | payer BC, OTHER, SELFPAY ==
[2021-04-16 15:49] VITALS: BP 145/92; PULSE 89; RESP 18; TEMP 36.5; O2SAT 95; BMI 25.0
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
[2021-04-16 16:30] VITALS: BP 127/93; PULSE 76; O2SAT 97
[2021-04-16 17:00] VITALS: BP 135/95; PULSE 82; RESP 16; O2SAT 96
[2021-04-16 18:38] VITALS: BP 135/95; PULSE 82; RESP 16; TEMP 36.5; O2SAT 96
== END 2021-04-16 18:38 | disposition home or self-care (01) ==
PROVIDERS: Emergency Provider Family Medicine; PCP Family Medicine
DX: S16.1XXA Strain of muscle, fascia and tendon at neck level, initial encounter (principal); V49.9XXA Car occupant (driver) (passenger) injured in unspecified traffic accident, initial encounter; Y92.488 Other paved roadways as the place of occurrence of the external cause
CPT/HCPCS: 72125; 73010; 73030; 99282

== ENCOUNTER 2024-09-02 13:45 | Emergency (ER) | payer BC, SELFPAY ==
--- NOTE | 2024-09-02 13:50 | ED_ITS ---
<Statement entered by Dorinda Haji DO - 09/02/24 16:04> I was consulted by the BAL, and we discussed the complexity of the problems being addressed. I approved the treatment and management plan for this patient's care in the emergency department, thus performing a substantive portion of the medical decision making. Dorinda Haji DO Discharge Plan Disposition Patient Disposition: Home, Self-Care Condition: Good Prescriptions Prescriptions: No Action ergocalciferol (vitamin D2) 1,250 mcg (50,000 unit) capsule 50,000 unit PO WEEKLY ibuprofen 800 mg tablet 800 mg PO Q6H PRN atorvastatin [Lipitor] 20 mg tablet 20 mg PO DAILY Qty: 90 3RF Referrals Follow up/Referrals: Konstantin Lucero MD [Primary Care Provider] - See instructions Benjamin Ramírez DO [Staff Physician] - See instructions Activity Restrictions/Add. Instructions Additional Instructions/Restrictions: I recommend continuing Tylenol alternating with Motrin along with ice to treat your symptoms symptomatically. Please call to make your appointment with Dr. Ramírez in the morning. If you have any worsening signs or symptoms follow-up with your PCP return to the ER as needed. Clinical Impressions Clinical Impression: Injury of knee, right Print Language Print Language: Maltese Discharge ED Provider: Dorinda Haji General Adult HPI General Chief complaint: PAIN Stated complaint: [id number] pain and swelling r knee Time Seen by Provider: 09/02/24 13:49 History of Present Illness HPI narrative: Patient presents for evaluation of a right knee injury. 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 Patient reported no pain at the time and was able to continue to finish his work. Patient took Tylenol and iced it down last night. However when he awoke this morning he reports that it was more painful and more swollen. Patient can bear weight reports no numbness no tingling loss of motor or sensory. Related Data Home Medications ?Medication ?Instructions ?Recorded ?Confirmed ergocalciferol (vitamin D2) 1,250 50,000 unit PO WEEKLY Supplement 09/04/19 07/13/21 mcg (50,000 unit) capsule ibuprofen 800 mg tablet 800 mg PO Q6H PRN 01/01/20 07/13/21 Previous Rx's ?Medication ?Instructions ?Recorded atorvastatin 20 mg tablet (Lipitor) 20 mg PO DAILY #90 tabs 07/13/21 Allergies Allergy/AdvReac Type Severity Reaction Status Date / Time No Known Allergies Allergy Verified 07/13/21 10:46 [facility] Disclaimer: The information contained in this section may have been updated after the patient was seen, as this information can be updated by other users. Social History Smoking Status: Former smoker tobacco type: cigarettes packs per day: 1 second hand exposure: Yes alcohol intake: current alcohol intake frequency: holidays/special occasions only substance use type: denies use current occupational status: employed Travel in the last 8 weeks: Inside the [place] household members: spouse housing: house current occupation: [employer] current occupational exposures/hazards: No caffeine: Yes Have you lived/traveled outside [place] in past 30 days?: No Contact w/someone who lives/traveled outside US past 30 days?: No Exposure to someone with infectious disease in past 14 days?: No Do you have a fever (greater than 100.4 F or 38 C)?: No Have you tested positive for COVID-19: No Exposed to someone with COVID-19 in past 14 days?: No Do you have a sore throat?: No Do you have a cough?: No Do you have any weakness?: No Do you have any diarrhea?: No Are you experiencing any unusual bleeding?: No Do you have any muscle aches/pain?: No Do you have any abdominal pain?: No Are you experiencing loss of taste or smell?: No Other Medical History Have you received the Flu Vaccine for this season: No Have you received the Pneumonia Vaccine: No ROS Obtained: Yes Systems reviewed as appropriate & no additional complaints except as documented Physical Exam General General appearance: alert and in no apparent distress Respiratory Respiratory exam: Present normal lung sounds bilaterally Cardiovascular Cardiovascular exam: Present regular rate Neurological Exam Neurological exam: Present alert and oriented X3 Medical Decision Making Medical Records Medical records reviewed: Yes I reviewed the patient's medical records. Screening: Per USPSTF and CDC recommendations, given the prevalence of disease in our region, it is our hospital?s policy to screen for HIV and viral Hepatitis for all patients aged 18 and over and those with ongoing risk factors. Jose Inquiry Pt receiving controlled substance: No Vital Signs: 09/02/24 13:53 09/02/24 13:54 Temperature 97.9 F Temperature Source Oral Pulse Rate 94 H Pulse Rate [Radial] 96 H Respiratory Rate 18 Blood Pressure 159/113 H Blood Pressure [Left Arm] 159/113 H Blood Pressure Mean [Left Arm] 128 Blood Pressure Source [Left Arm] Automatic Cuff Blood Pressure Position [Left Arm] Sitting 02 Sat by Pulse Oximetry 98 98 Oxygen Delivery Method Room Air Room Air Orders (Tests/Meds): ORDERS Category Date Time Status Knee XR right 3 views [XR knee RT 3V] Stat Exams 09/02/24 13:57 Completed Medical Decision Narrative: In summary patient is a 59-year-old male who presents to the emergency department for evaluation of right knee injury. Patient is hemodynamically stable upon arrival, afebrile. Physical exam is remarkable for anterior swelling around the joint lines however patient has no palpable bony deformity. He has full passive and active range of motion although it is painful at the extremes. He is neurovascular intact distally. Joint appears to be stable to medial and lateral pressure without joint laxity. Patient has a negative anterior drawer sign currently.. Differential diagnosis includes fracture versus ligamentous injury versus cartilaginous injury etc. Initial workup will be conducted with plain film x-rays. Initial interventions were considered however patient is already taken Tylenol and Motrin today. Initial workup reviewed by me and my informal interpretation of his imaging shows no acute fracture. Upon repeat evaluation patient reported no worsening in his pain and is still able to bear weight. Given this patient is appropriate discharge referral to Dr. Ramírez for further evaluation and care. Critical Care Critical Care Time Critical Care Time: No
[2024-09-02 13:53] VITALS: BP 159/113; PULSE 94; O2SAT 98
--- NOTE | 2024-09-02 13:53 | INFXCTL.NOTE ---
KIKE NEWSOME AT BEDSIDE
[2024-09-02 13:54] VITALS: BP 159/113; PULSE 96; RESP 18; TEMP 36.6; O2SAT 98; BMI 25.0
--- NOTE | 2024-09-02 13:57 | XR_ITS ---
FINAL REPORT CLINICAL HISTORY: Twisted knee yesterday evening, right knee pain COMPARISON: None FINDINGS: RIGHT KNEE Three views demonstrate no acute fracture or dislocation. The joint spaces appear unremarkable. No acute soft tissue abnormality is seen. There are hypertrophic changes of the tibial tuberosity. This can be seen with old [place]-Schlatter's disease or chronic patellar tendinitis. IMPRESSION: No acute findings. Reviewed, Interpreted and Dictated by Dk Bailey MD Transcribed by Franca French Authenticated and [facility]
[2024-09-02 15:09] VITALS: BP 145/95; PULSE 90; RESP 18; TEMP 36.8; O2SAT 98
== END 2024-09-02 15:09 | disposition home or self-care (01) ==
PROVIDERS: Emergency Provider Emergency Medicine; PCP Family Medicine
DX: S89.91XA Unspecified injury of right lower leg, initial encounter (principal); M25.561 Pain in right knee; F17.210 Nicotine dependence, cigarettes, uncomplicated; W01.0XXA Fall on same level from slipping, tripping and stumbling without subsequent striking against object, initial encounter; Y93.89 Activity, other specified; Y92.79 Other farm location as the place of occurrence of the external cause
CPT/HCPCS: 73562; 99283

== ENCOUNTER 2024-09-10 17:21 | Emergency (ER) | payer BC, SELFPAY ==
[2024-09-10] VITALS (18 sets, daily range): BP systolic 125–197; BP diastolic 76–151; PULSE 40–65; RESP 7–20; TEMP 36.6–36.8; O2SAT 95–100; BMI 26.6
--- NOTE | 2024-09-10 17:31 | CT_ITS ---
PROCEDURE INFORMATION: Exam: CT Abdomen And Pelvis Without Contrast Exam date and time: 09/10/2024 6:36 PM Age: 59 years old Clinical indication: Abdominal pain; Flank; Left; Additional info: Llq pain, sudden onset, h/o stones TECHNIQUE: Imaging protocol: Computed tomography of the abdomen and pelvis without contrast. Radiation optimization: All CT scans at this facility use at least one of these dose optimization techniques: automated exposure control; mA and/or kV adjustment per patient size (includes targeted exams where dose is matched to clinical indication); or iterative reconstruction. COMPARISON: CT ABDOMEN PELVIS WO CON 09/01/2019 9:47 PM FINDINGS: Lungs: Nonspecific bibasilar streaky opacities suggest atelectasis or parenchymal scarring. Pleural spaces: There are no pleural effusions. Heart: The visualized portions of the heart are unremarkable. There is no evidence of pericardial fluid collections. There is calcification of the aortic valve annulus. Esophagus: Apparent mild distal esophageal wall thickening could be on the basis of incomplete distension, small hiatal hernia but cannot exclude mild esophagitis. There is mildly increased material within the distal esophagus and proximal stomach consistent with residual ingested material. Liver: Evaluation of the liver is limited without contrast but the liver is within normal limits for this noncontrast study. Gallbladder and biliary ducts: The gallbladder is normal. Pancreas: Noncontrast images of the pancreas are within range of normal. Spleen: The spleen is normal. Adrenal glands: The adrenal glands are normal. Kidneys and ureters: There are several bilateral renal collecting system calcifications. There is a distal left ureteral calcification measuring 5.1 mm at the ureterovesicular junction resulting in mild left hydroureteronephrosis and mild perinephric and periureteric fat stranding. No right ureteric stone disease. Stomach and bowel: The duodenum is unremarkable. Unopacified loops of small bowel within range of normal. There are few colonic diverticula without evidence of diverticulitis.The colon is otherwise normal. The stomach appears overall within range of normal. Appendix: A normal appendix is identified. Intraperitoneal space: No evidence of intraperitoneal free air. There is no evidence of free intraperitoneal or pelvic fluid. Vasculature: The aorta and iliac arteries demonstrate mild atherosclerotic calcification. Lymph nodes: No enlarged lymph nodes. Urinary bladder: The bladder is normal. Reproductive: The prostate demonstrates nonspecific parenchymal calcifications. The prostate demonstrates mild nonspecific enlargement. The seminal vesicles are normal. Prostate measures 4.4 x 3.7 cm. Bones/joints: There are mild degenerative changes of the hip joints. There are mild degenerative changes of the symphyseal pubic joint. The thoracolumbar spine demonstrates mild degenerative changes at multiple levels. No acute fracture. Soft tissues: There is a tiny fat-containing umbilical hernia. Other findings: Evaluation is limited by the lack of intravenous and gastrointestinal contrast. IMPRESSION: 1. Distal left ureteral calcification measuring 5.1 mm at the ureterovesicular junction resulting in mild left hydroureteronephrosis and mild perinephric and periureteric fat stranding. 2. Mild nonspecific prostatic enlargement. 3. Apparent mild distal esophageal wall thickening consistent with esophagitis, incomplete distention or possibly small hiatal hernia. Cannot entirely exclude neoplastic process in the appropriate clinical setting. Correlate clinically. 4. Several bilateral renal collecting system calcifications.
[2024-09-10] MEDS: LACTATED RINGERS 1000ML 1,000 ML 999 ML IV (17:46)
[2024-09-10] MEDS: KETOROLAC 30MG/ML VIAL 30 MG IV (17:46)
[2024-09-10] MEDS: ACETAMINOPHEN 1,000MG/100ML VIAL 1000 MG IV (17:46)
[2024-09-10] MEDS: ONDANSETRON 4MG/2ML VIAL 4 MG IV (17:46)
[2024-09-10] MEDS: MORPHINE 4MG/ML SYRINGE 4 MG IV (17:46)
[2024-09-10 17:50] LABS: Basophils # 0.1 K/mm3 (0-0.2); Basophils % 1.1 % (0.1-2.0); Eosinophils # 0.2 K/mm3 (0.0-0.4); Eosinophils % 1.9 % (0.1-12.0); Hematocrit 41.6 % (42.0-52.0); Hemoglobin 14.1 g/dL (14.1-18.0); Lymphocytes # 2.1 K/mm3 (0.7-4.5); Lymphocytes % 26.8 % (10-50); Mean Corpuscular HGB Conc 33.9 g/dL (31.8-35.4); Mean Corpuscular Volume 85.4 fl (80-94); Mean Platelet Volume 10.1 fl (7.4-10.4); Monocytes # 0.8 K/mm3 (0.1-1.0); Monocytes % 9.4 % (1.7-9.3); Neutrophils # 4.8 K/mm3 (1.8-7.8); Neutrophils % 60.4 % (37.0-80.0); Platelet Count 322 K/mm3 (142-424); Red Blood Count 4.87 M/mm3 (4.60-6.20)
[2024-09-10 18:03] LABS: Albumin Level 4.6 g/dl (3.5-5.0); Chloride 106 mmol/L (98-107); Potassium 3.1 mmoL/L (3.5-5.1); Sodium 138 mmol/L (136-145)
[2024-09-10] MEDS: HYDROMORPHONE 2MG/ML SYRINGE 1 MG IV (18:05)
[2024-09-10 18:06] LABS: Alanine Aminotransferase 65 U/L (12-78); Albumin/Globulin Ratio 1.7 (1.1-1.8); Alkaline Phosphatase 103 U/L (38-126); Anion Gap 13.1 mEq/L (5-15); Aspartate Amino Transferase 45 U/L (17-59); Bilirubin,Total 0.8 mg/dl (0.2-1.3); Blood Urea Nitrogen 14 mg/dl (9-20); Carbon Dioxide 22 mmol/L (22.0-30.0); Creatinine Clearance Estimated 65 mL/min (50-200); Estimated Glomerular Filt Rate 57 ml/min (>60); GFR (African American) 68 ML/MIN (>60); Globulin 2.7 g/dL (1.3-3.2); Lipase 112 U/L (23-300); Total Protein,Serum 7.3 g/dl (6.3-8.2)
[2024-09-10 18:07] LABS: Calcium 9.2 mg/dl (8.4-10.2); Glucose 128 mg/dl (74-100)
--- NOTE | 2024-09-10 18:10 | ED_ITS ---
Discharge Plan Disposition Patient Disposition: Home, Self-Care Condition: Good Prescriptions Prescriptions: New tamsulosin [Flomax] 0.4 mg capsule 0.4 mg PO HS Qty: 14 0RF ketorolac 10 mg tablet 10 mg PO Q8H PRN (Reason: pain) 3 Days Qty: 12 0RF oxycodone 5 mg tablet 5 mg PO Q8H PRN (Reason: pain) Qty: 10 0RF ondansetron 4 mg tablet,disintegrating 4 mg PO Q8H PRN (Reason: nausea and vomiting) 4 Days Qty: 12 0RF No Action ergocalciferol (vitamin D2) 1,250 mcg (50,000 unit) capsule 50,000 unit PO WEEKLY ibuprofen 800 mg tablet 800 mg PO Q6H PRN atorvastatin [Lipitor] 20 mg tablet 20 mg PO DAILY Qty: 90 3RF Referrals Follow up/Referrals: Konstantin Lucero MD [Primary Care Provider] - See instructions Activity Restrictions/Add. Instructions Additional Instructions/Restrictions: You were evaluated in the emergency department today. You were diagnosed with a kidney stone. Follow-up closely with urology. We do not have an interventional urologist at our healthcare facility, but one close option is Dr. Marvin Connelly in [place] ([facility] - [address], [address], [place] [address] - [phone]). Please make sure you drink plenty of fluids and stay orally hydrated. Toradol is an NSAID like ibuprofen and aleve, so do not take other NSAIDs while taking this medication. Try getting by with toradol and Tylenol, but you may choose to take the narcotic pain medication provided to you in the event of severe pain not controlled by these medications. Do not drive or operate heavy machinery while taking narcotic pain medication, as it can be sedating. Narcotic pain medication can be addicting and can cause constipation. Follow-up closely with your primary care provider as well. Return to the emergency department for new or worsening symptoms such as significant worsening in pain, fever greater than 100.4 ?F, intractable nausea and vomiting. Clinical Impressions Clinical Impression: Ureterolithiasis, Hydronephrosis Stand Alone Forms Stand Alone Forms: Work/School Release Instructions Patient Instructions: DI for Kidney Stones Print Language Print Language: Belarusian Discharge ED Provider: Dorinda Haji General Adult HPI General Chief complaint: Abdominal Pain Stated complaint: Left side Abdominal pain with vomiting Time Seen by Provider: 09/10/24 17:25 Mode of Arrival: Wheelchair Source of Information: Patient Description of Symptoms (Recalled from ER Triage Doc. by RN): pt presents to ED with left lower abdomen pain that began around 5 pm. sharp in nature. history of kideny stones. History of Present Illness HPI narrative: This patient is a 59-year-old male with history of obesity, hyperlipidemia presenting to the emergency department for evaluation with concern for severe left lower quadrant abdominal pain. Patient states that he had been feeling a little bit rough all day but nothing focal. Suddenly at 5:00 PM after returning from the store, he developed severe left lower quadrant abdominal pain that is intractable. It is constant, nothing seems to make it better or worse. He thinks is another kidney stone. He does report a history of kidney stones. He has had nausea and vomiting associated with this, no change in bowel movements or urinary symptoms. No fevers, chills, or other concerns. Related Data Home Medications ?Medication ?Instructions ?Recorded ?Confirmed ergocalciferol (vitamin D2) 1,250 50,000 unit PO WEEKLY Supplement 09/04/19 07/13/21 mcg (50,000 unit) capsule ibuprofen 800 mg tablet 800 mg PO Q6H PRN 01/01/20 07/13/21 Previous Rx's ?Medication ?Instructions ?Recorded atorvastatin 20 mg tablet (Lipitor) 20 mg PO DAILY #90 tabs 07/13/21 ketorolac 10 mg tablet 10 mg PO Q8H PRN pain 3 days #12 09/10/24 tabs ondansetron 4 mg disintegrating 4 mg PO Q8H PRN nausea and 09/10/24 tablet vomiting 4 days #12 tabs oxycodone 5 mg tablet 5 mg PO Q8H PRN pain #10 tabs 09/10/24 tamsulosin 0.4 mg capsule (Flomax) 0.4 mg PO HS #14 caps 09/10/24 Allergies Allergy/AdvReac Type Severity Reaction Status Date / Time No Known Allergies Allergy Verified 07/13/21 10:46 [facility] Disclaimer: The information contained in this section may have been updated after the patient was seen, as this information can be updated by other users. Social History Smoking Status: Never smoker second hand exposure: Yes alcohol intake: current alcohol intake frequency: holidays/special occasions only substance use type: denies use current occupational status: employed Travel in the last 8 weeks: Inside the [place] household members: spouse housing: house current occupation: [employer] current occupational exposures/hazards: No caffeine: Yes Have you lived/traveled outside [place] in past 30 days?: No Contact w/someone who lives/traveled outside US past 30 days?: No Exposure to someone with infectious disease in past 14 days?: No Do you have a fever (greater than 100.4 F or 38 C)?: No Have you tested positive for COVID-19: No Exposed to someone with COVID-19 in past 14 days?: No Do you have a sore throat?: No Do you have a cough?: No Do you have any weakness?: No Do you have any diarrhea?: No Are you experiencing any unusual bleeding?: No Do you have any muscle aches/pain?: No Do you have any abdominal pain?: Yes Are you experiencing loss of taste or smell?: No Other Medical History Have you received the Flu Vaccine for this season: No Have you received the Pneumonia Vaccine: No ROS Obtained: Yes All systems reviewed & no additional complaints except as documented Physical Exam General General appearance: alert Comment: Uncomfortable appearing, writhing around in the bed in pain Head Head exam: atraumatic and normocephalic Eye Eye exam: Present normal appearance, PERRL and EOMI ENT ENT exam: Present normal exam, normal oropharynx, mucous membranes moist and normal external ear exam Neck Neck exam: Present normal inspection, full ROM and trachea midline; Absent tenderness Chest Chest inspection: Present normal inspection and symmetric chest wall rise; Absent tenderness Respiratory Respiratory exam: Present normal lung sounds bilaterally; Absent respiratory distress, wheezes, stridor or accessory muscle use Cardiovascular Cardiovascular exam: Present regular rate and normal rhythm Abdominal Exam Abdominal exam: Present soft; Absent distention, tenderness or guarding Extremities Exam Extremities exam: Present normal inspection, full ROM and normal capillary refill; Absent tenderness or edema Back Exam Back exam: Present normal inspection and full ROM; Absent tenderness Neurological Exam Neurological exam: Present alert, oriented X3, CN II-XII intact and normal gait; Absent motor sensory deficit Psychiatric Psychiatric exam: Present normal affect and normal mood Skin Skin exam: Present warm and dry Medical Decision Making Medical Records Medical records reviewed: Yes I reviewed the patient's medical records. Screening: Per USPSTF and CDC recommendations, given the prevalence of disease in our region, it is our hospital?s policy to screen for HIV and viral Hepatitis for all patients aged 18 and over and those with ongoing risk factors. Jose Inquiry Pt receiving controlled substance: Yes Jose was queried for this patient: Yes Risks and benefits of using a controlled substance: were discussed with pt by me Vital Signs: 09/10/24 17:28 09/10/24 17:31 09/10/24 17:46 Temperature 97.9 F Temperature Source Oral Pulse Rate 47 L 50 L Pulse Rate [Left Radial] 50 L Respiratory Rate 20 Blood Pressure 152/92 H 161/97 H Blood Pressure [Right Arm] 152/92 H Blood Pressure Mean [Right Arm] 112 Blood Pressure Source Blood Pressure Position 02 Sat by Pulse Oximetry 100 100 98 Oxygen Delivery Method Room Air Oxygen Flow Rate (LPM) 09/10/24 18:01 09/10/24 18:12 09/10/24 18:15 Temperature Temperature Source Pulse Rate 51 L 46 L 45 L Pulse Rate [Left Radial] Respiratory Rate Blood Pressure 197/151 H 197/118 H 163/88 H Blood Pressure [Right Arm] Blood Pressure Mean [Right Arm] Blood Pressure Source Blood Pressure Position 02 Sat by Pulse Oximetry 97 98 98 Oxygen Delivery Method Oxygen Flow Rate (LPM) 09/10/24 18:26 09/10/24 18:45 09/10/24 19:00 Temperature Temperature Source Pulse Rate 51 L 45 L 42 L Pulse Rate [Left Radial] Respiratory Rate 12 9 L 15 Blood Pressure 172/91 H 171/105 H Blood Pressure [Right Arm] Blood Pressure Mean [Right Arm] Blood Pressure Source Blood Pressure Position Supine 02 Sat by Pulse Oximetry 98 100 99 Oxygen Delivery Method Room Air Nasal Cannula Oxygen Flow Rate (LPM) 2 09/10/24 19:00 09/10/24 19:15 09/10/24 19:30 Temperature Temperature Source Pulse Rate 40 L 48 L 53 L Pulse Rate [Left Radial] Respiratory Rate 7 L 17 14 Blood Pressure 171/105 H 190/106 H Blood Pressure [Right Arm] Blood Pressure Mean [Right Arm] Blood Pressure Source Blood Pressure Position 02 Sat by Pulse Oximetry 100 98 96 Oxygen Delivery Method Nasal Cannula Oxygen Flow Rate (LPM) 2 09/10/24 19:30 09/10/24 19:31 09/10/24 19:45 Temperature Temperature Source Pulse Rate 47 L 47 L 65 Pulse Rate [Left Radial] Respiratory Rate 8 L 8 L 14 Blood Pressure 190/106 H Blood Pressure [Right Arm] Blood Pressure Mean [Right Arm] Blood Pressure Source Blood Pressure Position 02 Sat by Pulse Oximetry 99 99 100 Oxygen Delivery Method Oxygen Flow Rate (LPM) 09/10/24 20:00 09/10/24 20:01 09/10/24 20:03 Temperature Temperature Source Pulse Rate 57 L 55 L 53 L Pulse Rate [Left Radial] Respiratory Rate 16 15 Blood Pressure 144/114 H 125/76 Blood Pressure [Right Arm] Blood Pressure Mean [Right Arm] Blood Pressure Source Blood Pressure Position 02 Sat by Pulse Oximetry 96 98 96 Oxygen Delivery Method Room Air Oxygen Flow Rate (LPM) 09/10/24 20:21 09/10/24 20:22 Temperature 98.2 F 98.2 F Temperature Source Oral Oral Pulse Rate 56 L 53 L Pulse Rate [Left Radial] Respiratory Rate 17 20 Blood Pressure 125/76 125/76 Blood Pressure [Right Arm] Blood Pressure Mean [Right Arm] Blood Pressure Source Automatic Cuff Blood Pressure Position Sitting 02 Sat by Pulse Oximetry Oxygen Delivery Method Room Air Room Air Oxygen Flow Rate (LPM) Lab Data Lab results reviewed: Yes I reviewed the patient's lab results. Lab Results 09/10/24 17:33: WBC 8.0, RBC 4.87, Hgb 14.1, Hct 41.6 L, MCV 85.4, MCH 29.0, MCHC 33.9, RDW 13.0, Plt Count 322, MPV 10.1, Neut % (Auto) 60.4, Lymph % (Auto) 26.8, [place] % (Auto) 9.4 H, Eos % (Auto) 1.9, Baso % (Auto) 1.1, Neut # (Auto) 4.8, Lymph # (Auto) 2.1, [place] # (Auto) 0.8, Eos # (Auto) 0.2, Baso # (Auto) 0.1, Sodium 138, Potassium 3.1 L, Chloride 106, Carbon Dioxide 22, Anion Gap 13.1, BUN 14, Creatinine 1.30 H, Estimated Creat Clear 65, Estimated GFR 57 L, Est GFR ( Amer) 68, Glucose 128 H, Lactate 3.1 H, Calcium 9.2, Total Bilirubin 0.8, AST 45, ALT 65, Alkaline Phosphatase 103, Total Protein 7.3, Albumin 4.6, Globulin 2.7, Albumin/Globulin Ratio 1.7, Lipase 112, HCV Ab KATIUSKA w/Rflx PCR Qn Negative, HIV Ag/Ab Combo Qual Negative 09/10/24 19:23: Urine Color Yellow, Urine Appearance Clear, Urine pH 6.5, Ur Specific Dawson 1.015, Urine Protein Negative, Urine Glucose (UA) Negative, Urine Ketones Negative, Urine Blood Trace-i, Urine Nitrate Negative, Urine Bilirubin Negative, Urine Urobilinogen 0.2, Ur Leukocyte Esterase Negative, Urine RBC 5-10, Urine WBC 3-5, Urine Bacteria 1+ 09/10/24 17:33 09/10/24 17:33 Orders (Tests/Meds): ED MEDICATIONS Discontinued Medications Generic Name Dose Route Start Last Admin Trade Name Franky PRN Reason Stop Dose Admin Acetaminophen 1,000 mg 09/10/24 17:32 09/10/24 17:46 Acetaminophen 1,000mg/100ml Vial IV 09/10/24 17:33 1,000 mg ONCE ONE Administration Hydromorphone HCl 1 mg 09/10/24 18:00 09/10/24 18:05 Hydromorphone 2mg/Ml Syringe IV 09/10/24 18:01 1 mg ONCE ONE Administration Lactated Ringer's 1,000 mls @ 999 mls/hr 09/10/24 17:32 09/10/24 17:46 Lactated Ringer's 1000 Ml Bag IV 09/10/24 18:32 999 mls/hr .Q1H1M ONE Administration Potassium Chloride/Water 100 mls @ 100 mls/hr 09/10/24 18:16 09/10/24 18:26 Potassium Chloride 10meq/100ml Ivpb IV 09/10/24 19:15 100 mls/hr ONCE ONE Administration Ketorolac Tromethamine 30 mg 09/10/24 17:32 09/10/24 17:46 Ketorolac 30mg/Ml Vial IV 09/10/24 17:33 30 mg ONCE ONE Administration Morphine Sulfate 4 mg 09/10/24 17:32 09/10/24 17:46 Morphine 4mg/Ml Syringe IV 09/10/24 17:33 4 mg ONCE ONE Administration Ondansetron HCl 4 mg 09/10/24 17:32 09/10/24 17:46 Ondansetron 4mg/2ml Vial IV 09/10/24 17:33 4 mg ONCE ONE Administration Oxycodone HCl 5 mg 09/10/24 18:42 09/10/24 19:01 Oxycodone 5mg Immediate Release Tablet PO 09/10/24 18:43 5 mg ONCE ONE Administration Potassium Chloride 40 meq 09/10/24 18:16 09/10/24 18:26 Potassium Chloride 20meq Tab PO 09/10/24 18:17 40 meq ONCE ONE Administration Tamsulosin HCl 0.4 mg 09/10/24 18:42 09/10/24 19:01 Tamsulosin 0.4mg Capsule PO 09/10/24 18:43 0.4 mg ONCE ONE Administration ORDERS Category Date Time Status CT abdomen pelvis wo con Stat Cat Scan 09/10/24 17:31 Completed Complete Blood Count Auto Diff Stat Lab 09/10/24 17:33 Completed Comprehensive Metabolic Panel Stat Lab 09/10/24 17:33 Completed HIV Combo Stat Lab 09/10/24 17:33 Completed Hepatitis C Ab Qual. W/ RFX Stat Lab 09/10/24 17:33 Completed Lactic Acid Stat Lab 09/10/24 17:33 Completed Lipase Stat Lab 09/10/24 17:33 Completed UA [Urinalysis and Microscopic] Stat Lab 09/10/24 19:23 Completed Urine Culture Stat Micro 09/10/24 19:23 Received ECG Data Tracing #1: I reviewed this ECG and interpreted as documented below: Sinus bradycardia with a ventricular rate of 50 bpm. Normal OH interval at 200 ms. No STEMI. ECG initial impression date: 09/10/24 ECG initial impression time: 19:35 Medical Decision Narrative: In summary, this patient is a 59-year-old male presenting to the Emergency Department for evaluation of lower quadrant abdominal pain. Differential diagnoses considered include but are not limited to ureterolithiasis, cystitis, diverticulitis, colitis, intestinal perforation. Ruling out the most morbid conditions drove assessment. It should be noted patient's history includes hyperlipidemia which may not be at goal therapy. This complicates all aspects of care by increasing patient's risk for morbidity. I reviewed patient's past medical records and noted prior cardiology evaluations for aortic insufficiency. On exam, the patient is uncomfortable appearing, writhing around in the bed in pain. Otherwise, exam is reassuring. He feels like he has a kidney stone, and he does have a known history of kidney stones. Workup included CBC, CMP, lipase, lactic acid, urinalysis, urine culture, and CT abdomen pelvis without IV contrast. Patient is given a bolus of IV fluids as well as IV morphine, Zofran, Toradol, and acetaminophen for symptomatic improvement. I independently interpreted CT scan prior to the radiologist read and noted obstructive left ureteral stone that is 5 mm at the UVJ. Please see their read for final interpretation. Labs were obtained that demonstrated reassuring CBC with no significant leukocytosis. Kidney function is right around his baseline, not significant or worse. He does have mildly elevated lactic acid in the setting of severe pain for which he was writhing around. Potassium was low, so I ordered IV and oral replacement as well as IV fluids. Urinalysis is not overly concerning for infection with negative nitrates and leukocyte esterase. On reassessment, patient had minimal improvement after administration of IV morphine, Toradol, Zofran. He had continued pain, so ordered IV Dilaudid. After this, he had great improvement of pain. He has been bradycardic and slightly hypertensive on assessment. EKG was obtained that demonstrated sinus bradycardia without significant block. Patient's pain is well-controlled, no evidence of UTI or EMELY. At this time, it is felt that the patient is appropriate for discharge home with trial of passage of ureteral stone. He was given prescription for oxycodone, Zofran, Flomax, Toradol, instructions for supportive management on an outpatient basis, and very strict return precautions. He is also given information for close follow-up with PCP and urology. Strict return precautions were given. Critical Care Critical Care Time Critical Care Time: No
[2024-09-10 18:18] LABS: Lactic Acid 3.1 mmol/L (0.7-2.1)
[2024-09-10] MEDS: POTASSIUM CHLORIDE 20MEQ TAB 40 MEQ PO (18:26)
[2024-09-10] MEDS: KCl 10mEq/100ml 100 ML 100 MEQ IV (18:26)
--- NOTE | 2024-09-10 18:27 | PC.NURSE ---
pt placed on 2L NC due to desat while resting in bed after pain med administration.
--- NOTE | 2024-09-10 18:34 | PC.NURSE ---
PT GONE TO CT VIA STRETCHER
[2024-09-10] MEDS: OXYCODONE 5MG IMMEDIATE RELEASE TABLET 5 MG PO (19:01)
[2024-09-10] MEDS: TAMSULOSIN 0.4MG CAPSULE 0.4 MG PO (19:01)
[2024-09-10 19:10] LABS: HIV Combo NEGATIVE (Negative); Hepatitis C Ab Qual. W/ RFX NEGATIVE (Negative)
[2024-09-10 19:28] LABS: Microscopic, Urine URINE MICROSCOPIC (MICROSCOPIC)
--- NOTE | 2024-09-10 19:29 | ECG_ITS ---
APPROVED REPORT Exam: Resting ECG HR:50 bpm ECG Measurements Heart Rate 50 AXES WI 200 P 25 QRSd 93 QRS -25 QT 474 T -12 QTc 449 Conclusion SINUS BRADYCARDIA WITH SINUS ARRHYTHMIA Some motion artifact No STEMI Electronically signed by : CHUCK SOLIS, 09/10/2024 22:04:29
[2024-09-10 19:36] LABS: Appearance,Urine CLEAR (Clear); Bilirubin,Urine Negative (Negative); Blood, Urine TRACE-I (Negative); Color,Urine YELLOW (Yellow); Glucose,Urine (UA) Negative (Negative); Ketones,Urine Negative (Negative); Leukocyte Esterase,Urine Negative (Negative); Nitrate,Urine Negative (Negative); PH,Urine 6.5 (5.0-8.5); Protein,Urine Negative (Negative); Specific Gravity, Urine 1.015 (1.005-1.030); Urobilinogen,Urine 0.2 EU/dl (0.2)
--- NOTE | 2024-09-10 19:47 | PC.NURSE ---
Pt states pain is controlled. Laying in bed with family at bedside. No needs at this time.
[2024-09-10 20:04] LABS: Bacteria,Urine 1+ /lpf
[2024-09-10 22:02] LABS: Reflex Lactic Add Lactic Reflex
== END 2024-09-10 20:22 | disposition home or self-care (01) ==
PROVIDERS: Emergency Provider Emergency Medicine; PCP Family Medicine
DX: N13.2 Hydronephrosis with renal and ureteral calculous obstruction (principal); R11.2 Nausea with vomiting, unspecified; R10.32 Left lower quadrant pain; E78.5 Hyperlipidemia, unspecified; E87.6 Hypokalemia; R00.1 Bradycardia, unspecified; I35.1 Nonrheumatic aortic (valve) insufficiency; R03.0 Elevated blood-pressure reading, without diagnosis of hypertension; E66.9 Obesity, unspecified; Z68.26 Body mass index [BMI] 26.0-26.9, adult; Z87.442 Personal history of urinary calculi
CPT/HCPCS: 74176; 80053; 81001; 83605; 83690; 85025; 86803; 87086; 87389; 93005; 96361; 96374; 96375; 99284; J0131; J1171; J1885; J2270; J2405; J3480; J7120